=== PATIENT | male | born 1940 | race Caucasian/White ===

== ENCOUNTER 2017-11-25 01:08 | Inpatient (IN) | payer OTHER ==
[2017-11-25] MEDS: methylPREDNISolone INJ 125 MG/2 ML VIAL (J2930) IV ×3 (01:26→21:50)
[2017-11-25] MEDS: IPRATROPIUM 0.5MG/ALBUTEROL 2.5MG INH SOL UD 3ML (DUONEB)(J7620) NEB ×6 (01:33→20:13)
[2017-11-25 01:38] LABS: BASO # 0.1 10^3/uL (0.0-0.2); BASO % 0.7 % (0.0-1.0); EOS # 0.5 10^3/uL (0.0-0.50); EOS % 4.6 % (0.0-3.0); HEMATOCRIT 46.5 % (42.0-52.0); HEMOGLOBIN 15.6 g/dl (14.0-18.0); IMMATURE GRANULOCYTE % 0.3 % (0-0); LYMPH # 1.4 10^3/uL (1.5-4.5); LYMPH % 13.3 % (24.0-44.0); MEAN CORPUSCULAR HEMOGLOBIN 30.8 pg (27.0-33.0); MEAN CORPUSCULAR HGB CONC 33.5 g/dl (32.0-36.5); MEAN CORPUSCULAR VOLUME 91.9 fl (80.0-96.0); MONO # 1.2 10^3/uL (0.0-0.8); MONO % 11.3 % (0.0-5.0); NEUTROPHILS # 7.5 10^3/uL (1.8-7.7); NEUTROPHILS % 69.8 % (36.0-66.0); PLATELET COUNT, AUTOMATED 292 10^3/uL (150-450); RED BLOOD COUNT 5.06 10^6/uL (4.30-6.10); RED CELL DISTRIBUTION WIDTH 12.7 % (11.5-14.5); WHITE BLOOD COUNT 10.8 10^3/uL (4.0-10.0)
[2017-11-25] MEDS: MAG SULF 1GM/100ML (MAG RUN) 1 GM in APPROPRIATE DILUENT 1 EA IV (01:49)
[2017-11-25 01:56] LABS: LACTIC ACID SEPSIS PROTOCOL 1.6 MMOL/L (0.4-2.0)
[2017-11-25 01:58] LABS: ANION GAP 6 MEQ/L (8-16); BLOOD UREA NITROGEN 12 MG/DL (7-18); CALCIUM LEVEL 8.9 MG/DL (8.8-10.2); CARBON DIOXIDE LEVEL 29 MEQ/L (21-32); CHLORIDE LEVEL 104 MEQ/L (98-107); CREATININE FOR GFR 1.02 MG/DL (0.70-1.30); GLOMERULAR FILTRATION RATE > 60.0 (>42); GLUCOSE, FASTING 112 MG/DL (83-110); NT-PRO BNP 130 PG/ML (<450); POTASSIUM SERUM 3.4 MEQ/L (3.5-5.1); SODIUM LEVEL 139 MEQ/L (136-145)
[2017-11-25 02:10] LABS: ABG BASE EXCESS -0.9 (-2.0-2.0); ABG HCO3 22.8 MEQ/L (22.0-26.0); ABG O2 SATURATION 92.4 % (95.0-99.0); ABG PARTIAL PRESSURE CO2 35.4 mmHg (35.0-45.0); ABG PARTIAL PRESSURE O2 60.7 mmHg (75.0-100.0); ABG STANDARD HCO3 23.6 MEQ/L (22.0-26.0); ABG TOTAL CO2 23.9 MEQ/L (23.0-31.0); ABG pH (ARTERIAL) 7.427 UNITS (7.350-7.450)
[2017-11-25] MEDS: MONTELUKAST 10 MG TAB PO (08:42)
[2017-11-25] MEDS: PANTOPRAZOLE 40MG TAB (PROTONIX) PO (08:43)
[2017-11-26] MEDS: IPRATROPIUM 0.5MG/ALBUTEROL 2.5MG INH SOL UD 3ML (DUONEB)(J7620) NEB ×5 (03:39→18:26)
[2017-11-26 07:24] LABS: HEMATOCRIT 41.4 % (42.0-52.0); HEMOGLOBIN 13.9 g/dl (14.0-18.0); MEAN CORPUSCULAR HEMOGLOBIN 30.8 pg (27.0-33.0); MEAN CORPUSCULAR HGB CONC 33.6 g/dl (32.0-36.5); MEAN CORPUSCULAR VOLUME 91.6 fl (80.0-96.0); PLATELET COUNT, AUTOMATED 286 10^3/uL (150-450); RED BLOOD COUNT 4.52 10^6/uL (4.30-6.10); RED CELL DISTRIBUTION WIDTH 12.8 % (11.5-14.5); WHITE BLOOD COUNT 22.6 10^3/uL (4.0-10.0)
[2017-11-26 07:48] LABS: ANION GAP 8 MEQ/L (8-16); BLOOD UREA NITROGEN 23 MG/DL (7-18); CALCIUM LEVEL 8.8 MG/DL (8.8-10.2); CARBON DIOXIDE LEVEL 26 MEQ/L (21-32); CHLORIDE LEVEL 103 MEQ/L (98-107); CREATININE FOR GFR 1.16 MG/DL (0.70-1.30); GLOMERULAR FILTRATION RATE > 60.0 (>42); GLUCOSE, FASTING 158 MG/DL (83-110); POTASSIUM SERUM 4.2 MEQ/L (3.5-5.1); SODIUM LEVEL 137 MEQ/L (136-145)
[2017-11-26] MEDS: MONTELUKAST 10 MG TAB PO (08:22)
[2017-11-26] MEDS: PANTOPRAZOLE 40MG TAB (PROTONIX) PO (08:22)
[2017-11-26] MEDS: methylPREDNISolone INJ 125 MG/2 ML VIAL (J2930) IV ×2 (08:22→20:35)
[2017-11-26] MEDS: guaiFENesin ER 600 MG TAB PO ×2 (09:52→20:35)
[2017-11-26] MEDS: MAG SULF 1GM/100ML (MAG RUN) 1 GM in APPROPRIATE DILUENT 1 EA IV ×2 (15:59→16:56)
[2017-11-27 07:42] LABS: HEMATOCRIT 41.2 % (42.0-52.0); MEAN CORPUSCULAR HEMOGLOBIN 31.1 pg (27.0-33.0); MEAN CORPUSCULAR VOLUME 91.6 fl (80.0-96.0); PLATELET COUNT, AUTOMATED 273 10^3/uL (150-450); WHITE BLOOD COUNT 22.7 10^3/uL (4.0-10.0)
[2017-11-27 08:02] LABS: ANION GAP 5 MEQ/L (8-16); BLOOD UREA NITROGEN 25 MG/DL (7-18); CALCIUM LEVEL 8.4 MG/DL (8.8-10.2); CARBON DIOXIDE LEVEL 29 MEQ/L (21-32); CHLORIDE LEVEL 105 MEQ/L (98-107); CREATININE FOR GFR 1.03 MG/DL (0.70-1.30); GLOMERULAR FILTRATION RATE > 60.0 (>42); GLUCOSE, FASTING 136 MG/DL (83-110); MAGNESIUM LEVEL 2.9 MG/DL (1.8-2.4); POTASSIUM SERUM 4.6 MEQ/L (3.5-5.1); SODIUM LEVEL 139 MEQ/L (136-145)
[2017-11-27] MEDS: methylPREDNISolone INJ 125 MG/2 ML VIAL (J2930) IV ×2 (09:29→21:07)
[2017-11-27] MEDS: guaiFENesin ER 600 MG TAB PO ×3 (09:29→21:07)
[2017-11-27] MEDS: MONTELUKAST 10 MG TAB PO (09:29)
[2017-11-27] MEDS: PANTOPRAZOLE 40MG TAB (PROTONIX) PO (09:29)
[2017-11-27] MEDS: IPRATROPIUM 0.5MG/ALBUTEROL 2.5MG INH SOL UD 3ML (DUONEB)(J7620) NEB ×2 (10:44→17:00)
[2017-11-27] MEDS: SYMBICORT 160/4.5MCG INHALER 6GM INH ×2 (14:22→20:58)
[2017-11-28 06:44] LABS: HEMATOCRIT 39.9 % (42.0-52.0); HEMOGLOBIN 13.5 g/dl (14.0-18.0); MEAN CORPUSCULAR HGB CONC 33.8 g/dl (32.0-36.5); MEAN CORPUSCULAR VOLUME 91.5 fl (80.0-96.0); PLATELET COUNT, AUTOMATED 244 10^3/uL (150-450); RED BLOOD COUNT 4.36 10^6/uL (4.30-6.10); RED CELL DISTRIBUTION WIDTH 12.7 % (11.5-14.5)
[2017-11-28 07:02] LABS: ANION GAP 6 MEQ/L (8-16); BLOOD UREA NITROGEN 19 MG/DL (7-18); CARBON DIOXIDE LEVEL 28 MEQ/L (21-32); CHLORIDE LEVEL 105 MEQ/L (98-107); CREATININE FOR GFR 0.87 MG/DL (0.70-1.30); GLOMERULAR FILTRATION RATE > 60.0 (>42); GLUCOSE, FASTING 132 MG/DL (83-110); POTASSIUM SERUM 4.4 MEQ/L (3.5-5.1); SODIUM LEVEL 139 MEQ/L (136-145)
[2017-11-28] MEDS: MONTELUKAST 10 MG TAB PO (08:37)
[2017-11-28] MEDS: guaiFENesin ER 600 MG TAB PO (08:37)
[2017-11-28] MEDS: methylPREDNISolone INJ 125 MG/2 ML VIAL (J2930) IV (08:37)
[2017-11-28] MEDS: PANTOPRAZOLE 40MG TAB (PROTONIX) PO (08:37)
[2017-11-28] MEDS: SYMBICORT 160/4.5MCG INHALER 6GM INH (09:14)
[2017-11-28] MEDS: IPRATROPIUM 0.5MG/ALBUTEROL 2.5MG INH SOL UD 3ML (DUONEB)(J7620) NEB (10:53)
== END 2017-11-28 12:15 | disposition home or self-care (01) | DRG 203 ==
LOC: M MS4PR 11-26 03:05 → M MS5PR 11-28 03:20 → M ED 01:08 → M ED INP 03:28
DX: J45.901 Unspecified asthma with (acute) exacerbation (principal); K21.9 Gastro-esophageal reflux disease without esophagitis; D72.829 Elevated white blood cell count, unspecified; Z79.899 Other long term (current) drug therapy

== ENCOUNTER → 2018-11-19 | Outpatient (REF) ==
[~2018-11-19] MED LIST: ALBU83IN INH; CLAR10CA3 PO; FISH100049 PO; IPRA0.00 NEB; LORA-243 PO; OMEP20CA3 PO; OMEP40CA2 PO; PRED20TA PO; PROAAER10 INH; SING10TA32 PO; SYMB16INH INH; VITA-115 PO; VITA100066 PO; VITA500T PO; VITATAB11 PO
--- NOTE | 2018-11-19 17:14 | REP ---
Chest x-ray: Two views: History: Cough and wheezing. Comparison study: November 25, 2017. Findings: Right hemidiaphragm is somewhat elevated as before consistent with an eventration. There is a small sliding-type hiatal hernia again noted. The lungs are otherwise well inflated and clear. Pleural angles are sharp. Heart size is normal. Pulmonary vasculature is not increased. No significant bony abnormality. Impression: Small hiatal hernia. Eventration right hemidiaphragm again noted. No acute disease. Electronically Signed by Lee Worley MD 11/19/2018 06:22 P
== END ==
LOC: M RAD 16:14
PROVIDERS: ATTEND Nurse Practitioner Family
DX: R05 Cough (principal); R06.09 Other forms of dyspnea

== ENCOUNTER 2019-07-20 23:50 | Inpatient (IN) | payer OTHER, MEDICARE ==
[~2019-07-20] VITALS: Ht 177.8 cm; Wt 90.1 kg
[~2019-07-20 23:50] MED LIST changes: -OMEP20CA3 PO; +OMEP20CA4 PO
[2019-07-21] MEDS ORDERED: BUDESONIDE 0.5 MG/2 ML INHALATION SUSPENSION INH ONE (00:15)
[2019-07-21] MEDS: MAG SULF 1GM/100ML (MAG RUN) 1 GM in APPROPRIATE DILUENT 1 EA IV SCH ×2 (00:38→01:19)
[2019-07-21 00:41] LABS: BASO # 0.1 10^3/uL (0.0-0.2); BASO % 0.5 % (0.0-1.0); EOS # 0.2 10^3/uL (0.0-0.50); EOS % 1.2 % (0.0-3.0); HEMOGLOBIN 14.9 g/dl (13.5-17.5); LYMPH % 7.4 % (24.0-44.0); MEAN CORPUSCULAR HEMOGLOBIN 31.6 pg (27.0-33.0); MEAN CORPUSCULAR HGB CONC 33.1 g/dl (32.0-36.5); MEAN CORPUSCULAR VOLUME 95.5 fl (80.0-96.0); MONO # 0.7 10^3/uL (0.0-0.8); NEUTROPHILS # 11.4 10^3/uL (1.8-7.7); NEUTROPHILS % 85.5 % (36.0-66.0); PLATELET COUNT, AUTOMATED 244 10^3/uL (150-450); RED BLOOD COUNT 4.71 10^6/uL (4.30-6.10); WHITE BLOOD COUNT 13.3 10^3/uL (4.0-10.0)
[2019-07-21 01:30] LABS: BLOOD UREA NITROGEN 18 MG/DL (7-18); CALCIUM LEVEL 9.9 MG/DL (8.8-10.2); CARBON DIOXIDE LEVEL 29 MEQ/L (21-32); CHLORIDE LEVEL 106 MEQ/L (98-107); CK-MB VALUE MASS 7.7 NG/ML (<3.6); CPK CREATINE PHOSPHOKINASE 349 U/L (39-308); CREATININE FOR GFR 1.15 MG/DL (0.70-1.30); GLOMERULAR FILTRATION RATE > 60.0 (>42); GLUCOSE, FASTING 118 MG/DL (70-100); MB/CK RELATIVE INDEX 2.21 (< OR =4); NT-PRO BNP 134 PG/ML (<450); POTASSIUM SERUM 4.1 MEQ/L (3.5-5.1); SODIUM LEVEL 141 MEQ/L (136-145); TROPONIN I < 0.02 NG/ML (< 0.10)
[2019-07-21] MEDS ORDERED: IPRATROPIUM 0.5MG/ALBUTEROL 2.5MG INH SOL UD 3ML (DUONEB)(J7620) NEB ONE ×2 (02:15→19:00)
[2019-07-21] MEDS ORDERED: IPRATROPIUM 0.5MG/ALBUTEROL 2.5MG INH SOL UD 3ML (DUONEB)(J7620) NEB PRN (03:00)
--- NOTE | 2019-07-21 03:09 | HPEPDOC ---
General Date of Admission 07/21/19 Date of Service: Jul 21, 2019 Chief Complaint The patient is a 78-year-old male admitted with a reason for visit of SOB. Source: Patient, RN/MD, Old records Exam Limitations: No limitations Severity: Moderate History of Present Illness 78 year old male presented to the ED via EMS for worsening SOB for 4 days with increased cough and wheezing which reached a crisis level yesterday afternoon to such an extent that he was confused unable to speak more than 2 words at a time and did not know what was going on so called the ambulance. Over the past several days he used his rescue inhaler and nebs frequently without any relief . In the ED he was given nebs, and magnesium for his SOB. He was hypoxic on arrival which improved after treatment but he still continued to be hypoxic on ambulation. He was given Decadron by EMS. He was admitted for Acute asthma exacerbation with hypoxia. Home Medications Scheduled Glucosamine Sulfate Dipot Chlr (Glucosamine) 1,000 Mg Tablet, 1,000 MG PO DAILY, (Reported) Loratadine (Loratadine) 10 Mg Tab, 10 MG PO DAILY, (Reported) Montelukast Sodium (Singulair) 10 Mg Tab, 10 MG PO DAILY, (Reported) [place]-3 Fatty Acids/Fish Oil (Fish Oil 1,000 mg Capsule) 1 Each Capsule, 1,000 MG PO DAILY, (Reported) Omeprazole (Omeprazole) 20 Mg Cap, 20 MG PO DAILY, (Reported) Saw [place] (Saw Montgomery) 160 Mg Capsule, 160 MG PO BID, (Reported) Tiotropium [place] (Spiriva) 18 Mcg Cap.w.dev, 1 INHALATION INH DAILY, (Rep orted) Vitamin B Complex (B Complex) 1 Each Tablet, 1 TAB PO DAILY, (Reported) Scheduled PRN Albuterol Sulf (Albuterol Sulfate) 2.5 Mg/3 Ml Nebu, 2.5 MG INH QID PRN for SHORTNESS OF BREATH, (Reported) Albuterol Sulfate (Proair Hfa) 108 Mcg/Act Aer, 2 PUFF INH Q4H PRN for SHORTNESS OF BREATH, (Reported) Allergies Coded Allergies: aspirin (Verified Allergy, Severe, ANAPHYLAXIS, 07/21/19) Past Medical History Medical History Asthma GERD Small hiatal hernia. Eventration right hemidiaphragm Surgical History Tonsillectomy vasectomy Hernia repair left knee tendon surgery Family History Significant Family History: Asthma (grandfather) Social History * Smoker: Denies Alcohol: Denies Drugs: denies A-FIB/CHADSVASC A-FIB History Current/History of A-Fib/PAF?: No Review of Systems Constitutional: Reports: Fatigue; Denies: Chills, Fever, Night Sweats Eyes: Denies: Pain, Vision change ENT: Denies: Head Aches, Ear Pain, Dysphagia Skin: Denies: Rash, Lesions, Breakdown Pulmonary: Reports: Dyspnea, Cough Cardiovascular: Reports: Palpitations, Edema Gastrointestinal: Denies: Nausea, Vomiting, Abdominal Pain, Diarrhea Genitourinary: Denies: Dysuria, Frequency, Incontinence, Retention Musculoskeletal: Denies: Neck Pain, Back Pain, Joint Pain, Muscle Pain, Spasms Neurological: Reports: Confusion; Denies: Weakness, Numbness, Change in speech Physical Examination General Exam: Positive: Alert, Cooperative, Mild Distress Eye Exam: Positive: PERRLA, Conjunctiva & lids normal, EOMI; Negative: Sclera icteric ENT Exam: Positive: Atraumatic, Mucous membr. moist/pink, Pharynx Normal Neck Exam: Positive: Supple; Negative: JVD, thyromegaly Chest Exam: Positive: Rhonchi, Wheezing, Diminished Heart Exam: Positive: Rate Normal, Tachycardic, Regular Rhythm, Normal S1, Normal S2, Other; Negative: Gallops, Murmurs, Rubs Telemetry: Positive: Sinus, Tachycardia Abdomen Exam: Positive: Normal bowel sounds, Soft; Negative: Tenderness, Hepatospenomegaly Extremity Exam: Positive: Edema (trace edema) Skin Exam: Positive: Nl turgor and temperature; Negative: Breakdown, Lesion Neuro Exam: Positive: Normal Gait, Normal Speech, Cranial Nerves 3-12 NL, Reflexes 2+ Vital Signs Vital Signs Date Time Temp Pulse Resp B/P (MAP) Pulse Ox O2 Delivery O2 Flow Rate FiO2 07/21/19 00:04 Nasal Cannula 2.0 07/21/19 00:02 97.3 104 22 149/97 (114) 97 Laboratory Data Labs 24H Laboratory Tests 2 07/21/19 00:25: Immature Granulocyte % (Auto) 0.4, White Blood Count 13.3H, Red Blood Count 4.71, Hemoglobin 14.9, Hematocrit 45.0, Mean Corpuscular Volume 95.5, Mean Corpuscular Hemoglobin 31.6, Mean Corpuscular Hemoglobin Concent 33.1, Red Cell Distribution Width 12.9, Platelet Count 244, Neutrophils (%) (Auto) 85.5H, Lymphocytes (%) (Auto) 7.4L, Monocytes (%) (Auto) 5.0, Eosinophils (%) (Auto) 1.2, Basophils (%) (Auto) 0.5, Neutrophils # (Auto) 11.4H, Lymphocytes # (Auto) 1.0L, Monocytes # (Auto) 0.7, Eosinophils # (Auto) 0.2, Basophils # (Auto) 0.1, Nucleated Red Blood Cells % (auto) 0.0, Anion Gap 6L, Glomerular Filtration Rate > 60.0, Lactic Acid Level 1.0, Blood Urea Nitrogen 18, Creatinine 1.15, Sodium Level 141, Potassium Level 4.1, Chloride Level 106, Carbon Dioxide Level 29, Calcium Level 9.9, Total Creatine Kinase 349H, Creatine Kinase MB 7.7H, Creatine Kinase MB Relative Index 2.21, Troponin I < 0.02, UJ-[id number]-Type Natriuretic Peptide 134 07/21/19 01:41: POC pH (Misc Panel) 7.372, POC Base Excess (Misc Panel) -1.0, POC Saturated Percent O2 (Misc) 96, POC pO2 (Misc Panel) 85.0, POC pCO2 (Misc Panel) 41.3, POC HCO3 (Misc Panel) 24.0, POC Total CO2 (Misc Panel) 25.0 CBC/BMP Laboratory Tests 07/21/19 00:25 Red Blood Count 4.71, Mean Corpuscular Volume 95.5, Mean Corpuscular Hemoglobin 31.6, Mean Corpuscular Hemoglobin Concent 33.1, Red Cell Distribution Width 12.9, Neutrophils (%) (Auto) 85.5 H, Lymphocytes (%) (Auto) 7.4 L, Monocytes (%) (Auto) 5.0, Eosinophils (%) (Auto) 1.2, Basophils (%) (Auto) 0.5, Neutrophils # (Auto) 11.4 H, Lymphocytes # (Auto) 1.0 L, Monocytes # (Auto) 0.7, Eosinophils # (Auto) 0.2, Basophils # (Auto) 0.1, Calcium Level 9.9, Total Creatine Kinase 349 H Microbiology Microbiology 07/21/19 Blood Culture, Received Pending 07/21/19 Blood Culture, Received Pending Assessment/Plan 78 year old male presented to the ED via EMS for worsening SOB for 4 days with increased cough and wheezing which reached a crisis level yesterday afternoon to such an extent that he was confused unable to speak more than 2 words at a time and did not know what was going on so called the ambulance. Over the past several days he used his rescue inhaler and nebs frequently without any relief . In the ED he was given nebs, and magnesium for his SOB. He was hypoxic on arrival which improved after treatment but he still continued to be hypoxic on ambulation. He was given Decadron by EMS. He was admitted for Acute asthma exacerbation with hypoxia. Asthma exacerbation will continue albuterol nebs, spiriva , methylpred, singulair, loratadine. will add budesonide nebs. Hypoxia due to asthma exacerbation continue oxygen supplementation Leucocytosis probably reactive GERD/Hiatal hernia omeprazole. Plan / VTE VTE Prophylaxis Ordered?: Yes PRATIBHA MOROCHO MD Jul 21, 2019 02:29
[2019-07-21] MEDS ORDERED: RA B1TAB7 PO (03:10)
[2019-07-21] MEDS ORDERED: SPIR1CAP INH (03:10)
[2019-07-21] MEDS ORDERED: SM S160C PO (03:10)
[2019-07-21] MEDS ORDERED: FISH1000 PO (03:10)
[2019-07-21] MEDS ORDERED: GNP1000T11 PO (03:10)
[2019-07-21] MEDS: ALBUTEROL SULFATE 2.5 MG/0.5 ML INH NEB SOLN NEB SCH ×4 (04:17→15:26)
[2019-07-21] MEDS: methylPREDNISolone INJ 40 MG/1 ML VIAL (J2920) IV SCH ×2 (05:11→12:20)
--- NOTE | 2019-07-21 05:44 | ECGEPIP ---
[facility] - ED Test Date: 2019-07-21 Pat Name: JEREMIE ALBA Department: Room: - Gender: Male Adoption Social Worker: margot : 1940 Requested By: SUDHA Li Order Number: [id number] Reading MD: Jayden De Anda Measurements Intervals [place] Rate: 103 P: 59 SD: 188 QRS: -62 QRSD: 113 T: 88 QT: 355 QTc: 465 Interpretive Statements SINUS TACHYCARDIA WITH FREQUENT VENTRICULAR PREMATURE COMPLEXES LEFT AXIS DEVIATION MODERATE INTRAVENTRICULAR CONDUCTION DELAY NONSPECIFIC T-WAVE ABNORMALITY SIMILAR TO 11/25/17 Electronically Signed on 07-21-2019 5:43:43 EDT by Jayden De Anda
[2019-07-21 06:45] LABS: BASO % 0.3 % (0.0-1.0); HEMOGLOBIN 14.2 g/dl (13.5-17.5); LYMPH # 0.5 10^3/uL (1.5-4.5); LYMPH % 7.2 % (24.0-44.0); MEAN CORPUSCULAR HEMOGLOBIN 31.8 pg (27.0-33.0); MEAN CORPUSCULAR HGB CONC 33.8 g/dl (32.0-36.5); MEAN CORPUSCULAR VOLUME 94.2 fl (80.0-96.0); MONO # 0.1 10^3/uL (0.0-0.8); MONO % 1.3 % (0.0-5.0); NEUTROPHILS # 6.2 10^3/uL (1.8-7.7); NEUTROPHILS % 90.8 % (36.0-66.0); PLATELET COUNT, AUTOMATED 234 10^3/uL (150-450); RED BLOOD COUNT 4.46 10^6/uL (4.30-6.10); WHITE BLOOD COUNT 6.8 10^3/uL (4.0-10.0)
[2019-07-21 06:55] LABS: BLOOD UREA NITROGEN 16 MG/DL (7-18); CALCIUM LEVEL 8.8 MG/DL (8.8-10.2); CARBON DIOXIDE LEVEL 27 MEQ/L (21-32); CHLORIDE LEVEL 106 MEQ/L (98-107); CREATININE FOR GFR 0.95 MG/DL (0.70-1.30); GLOMERULAR FILTRATION RATE > 60.0 (>42); GLUCOSE, FASTING 161 MG/DL (70-100); POTASSIUM SERUM 4.1 MEQ/L (3.5-5.1); SODIUM LEVEL 139 MEQ/L (136-145)
[2019-07-21] MEDS ORDERED: SYMBICORT 160/4.5MCG INHALER 6GM INH SCH (08:00)
[2019-07-21] MEDS: TIOTROPIUM INHALER/CAPSULE (SPIRIVA) INH SCH (08:20)
[2019-07-21] MEDS: BUDESONIDE 0.5 MG/2 ML INHALATION SUSPENSION INH SCH ×2 (08:20→21:34)
[2019-07-21 09:00] VITALS: BP 129/88
[2019-07-21] MEDS: ENOXAPARIN 40 MG/0.4 ML SYRINGE (J1650) SC SCH (09:11)
[2019-07-21] MEDS: LORATADINE 10 MG TAB PO SCH (09:11)
[2019-07-21] MEDS: OMEPRAZOLE 20 MG CAP PO SCH (09:11)
[2019-07-21] MEDS ORDERED: SYMB16INH INH (11:20)
[2019-07-21] MEDS ORDERED: PULM90IN INH (11:20)
--- NOTE | 2019-07-21 11:57 | REP ---
Clinical: Shortness of breath . Comparison: 11/19/2018 . Findings: The mediastinum and cardiac silhouette are stable and within normal limits for portable technique. The lung ruiz demonstrate chronic-appearing changes including elevation to the right hemidiaphragm. Subtle left basilar atelectasis cannot be excluded. No discrete focal consolidation. No effusion. No pneumothorax. Skeletal structures are intact. Impression: Chronic-appearing changes. Cannot exclude subtle left basilar atelectasis. Electronically Signed by Kevin Patel MD 07/21/2019 02:19 A
--- NOTE | 2019-07-21 11:58 | IPNPDOC ---
Subjective Date Seen The patient was seen on 07/21/19. Subjective Chief Complaint/HPI 78 y/o male patient presented by ambulance to ED with shortness of breath, hypoxia and coughing that started at approximately 5:30 am on 07/19/19. Patient has history of asthma with acute exasperations. Patient used his nebulizer and rescue inhaler with only minor relief. Patient has been exposed to hospital environment several times over the past week visiting his hospitalized at [place]. Patient's daughter stated that she is not sure if he has been compliant with his asthma medications proceeding this acute respiratory distress episode. ENT: Denies: Ear Pain, Dysphagia, Sinus Congestion, Post Nasal Drip, Sore T hroat Pulmonary: Reports: Dyspnea, Cough; Denies: Pleuritic Chest Pain Cardiovascular: Denies: Chest Pain, Palpitations Gastrointestinal: Denies: Abdominal Pain Psych: Denies: Memory Issues Objective Physical Examination General Exam: Positive: Alert, Cooperative, No Acute Distress Neck Exam: Positive: Supple; Negative: JVD, thyromegaly Chest Exam: Positive: Wheezing; Negative: Rales, Rhonchi Heart Exam: Positive: Rate Normal, Tachycardic, Bradycardic, Regular Rhythm, Irregular Rhythm, Normal S1, Normal S2, Other; Negative: Gallops, Murmurs, Rubs Telemetry: Positive: Sinus, Tachycardia Abdomen Exam: Positive: Normal bowel sounds, Soft; Negative: Tenderness, Hepatospenomegaly, Mass, Hernia Extremity Exam: Positive: Normal pulses; Negative: Cyanosis, Edema (trace edema), Tenderness, Swelling Skin Exam: Positive: Nl turgor and temperature Neuro Exam: Positive: Normal Speech Psych Exam: Positive: Mood NL, Oriented x 3, Other (Patient oriented to place, name, birthdate president but daughter stated uses paper for day and month as he has trouble with short-term memory. For example, he does not remember visting his at hospital yesterday.) RAD Interpretation STUDY: CXR Rad Actions: Report Reviewed RAD Interpretation: Other Result Comments: (Impression : Chronic-appearing changes. Cannot exclude subtle basilar atelectasis) Assessment /Plan Assessment 78 year old male presented to the ED via EMS for SOB that started 2 days ago with non productive cough and bilateral wheezing. He has been using his rescue inhaler and nebulized albuterol frequently since 07/19/19 with limited relief. Patient was transported to [facility] ED by ambulance for cough and SOB. Ambulance providers gave Decadron prior to arrival in ED. Patient's hypoxic and shortness of breath conditions improved with nebulized treatments and magnesium at rest. Upon ambulation patient's SOB and hypoxia returned. Patient was admitted for Acute asthma exacerbation with hypoxia. Respiratory Virus Panel (PCR) was negative. Plan/VTE VTE Prophylaxis Ordered?: Yes (Continue Levenox 40 mg Daily SC ) Plan 1. Asthma exacerbation Continue Albuterol Sulfate 2.5 mg RQ4H NEB, Spiriva handihaler 1-inhalation daily @ 08:00, Methylpredisone 40 mg Q8H IV, Singulair 10 mg PO QHS, Loratadine 10 mg PO daily and Budesonide 0.5 RBID INH. 2. Hypoxia - Due to Acute asthma exacerbation Continue oxygen supplementation 2L by nasal cannula. Wean off oxygen as patient able to ambulate without SOB, coughing and SpO2 sat at 92% or above. 3. Leukocytosis, resolved -Most likely reactive 4. GERD/Hiatal hernia Continue Omeprazole 20 mg PO Daily VS, I&O, 24H, [facility] Vital Signs/I&O Vital Signs Date Time Temp Pulse Resp B/P (MAP) Pulse Ox O2 Delivery O2 Flow Rate FiO2 07/21/19 09:00 98.8 102 22 129/88 (102) 93 07/21/19 08:00 2.0 07/21/19 03:00 Nasal Cannula Laboratory Data 24H LABS Laboratory Tests 2 07/21/19 00:25: Immature Granulocyte % (Auto) 0.4, White Blood Count 13.3H, Red Blood Count 4.71, Hemoglobin 14.9, Hematocrit 45.0, Mean Corpuscular Volume 95.5, Mean Corpuscular Hemoglobin 31.6, Mean Corpuscular Hemoglobin Concent 33.1, Red Cell Distribution Width 12.9, Platelet Count 244, Neutrophils (%) (Auto) 85.5H, Lymphocytes (%) (Auto) 7.4L, Monocytes (%) (Auto) 5.0, Eosinophils (%) (Auto) 1.2, Basophils (%) (Auto) 0.5, Neutrophils # (Auto) 11.4H, Lymphocytes # (Auto) 1.0L, Monocytes # (Auto) 0.7, Eosinophils # (Auto) 0.2, Basophils # (Auto) 0.1, Nucleated Red Blood Cells % (auto) 0.0, Anion Gap 6L, Glomerular Filtration Rate > 60.0, Lactic Acid Level 1.0, Blood Urea Nitrogen 18, Creatinine 1.15, Sodium Level 141, Potassium Level 4.1, Chloride Level 106, Carbon Dioxide Level 29, Calcium Level 9.9, Total Creatine Kinase 349H, Creatine Kinase MB 7.7H, Creatine Kinase MB Relative Index 2.21, Troponin I < 0.02, QB-Kcy-[id number]-Type Natriuretic P eptide 134 07/21/19 01:41: POC pH (Misc Panel) 7.372, POC Base Excess (Misc Panel) -1.0, POC Saturated Percent O2 (Misc) 96, POC pO2 (Misc Panel) 85.0, POC pCO2 (Misc Panel) 41.3, POC HCO3 (Misc Panel) 24.0, POC Total CO2 (Misc Panel) 25.0 07/21/19 06:21: Immature Granulocyte % (Auto) 0.4, White Blood Count 6.8, Red Blood Count 4.46, Hemoglobin 14.2, Hematocrit 42.0, Mean Corpuscular Volume 94.2, Mean Corpuscular Hemoglobin 31.8, Mean Corpuscular Hemoglobin Concent 33.8, Red Cell Distribution Width 13.1, Platelet Count 234, Neutrophils (%) (Auto) 90.8H, Lymphocytes (%) (Auto) 7.2L, Monocytes (%) (Auto) 1.3, Eosinophils (%) (Auto) 0.0, Basophils (%) (Auto) 0.3, Neutrophils # (Auto) 6.2, Lymphocytes # (Auto) 0.5L, Monocytes # (Auto) 0.1, Eosinophils # (Auto) 0.0, Basophils # (Auto) 0.0, Nucleated Red Blood Cells % (auto) 0.0, Anion Gap 6L, Glomerular Filtration Rate > 60.0, Blood Urea Nitrogen 16, Creatinine 0.95, Sodium Level 139, Potassium Level 4.1, Chloride Level 106, Carbon Dioxide Level 27, Calcium Level 8.8 CBC/BMP Laboratory Tests 07/21/19 00:25 Red Blood Count 4.71, Mean Corpuscular Volume 95.5, Mean Corpuscular Hemoglobin 31.6, Mean Corpuscular Hemoglobin Concent 33.1, Red Cell Distribution Width 12.9, Neutrophils (%) (Auto) 85.5 H, Lymphocytes (%) (Auto) 7.4 L, Monocytes (%) (Auto) 5.0, Eosinophils (%) (Auto) 1.2, Basophils (%) (Auto) 0.5, Neutrophils # (Auto) 11.4 H, Lymphocytes # (Auto) 1.0 L, Monocytes # (Auto) 0.7, Eosinophils # (Auto) 0.2, Basophils # (Auto) 0.1, Calcium Level 9.9, Total Creatine Kinase 349 H 07/21/19 06:21 Red Blood Count 4.46, Mean Corpuscular Volume 94.2, Mean Corpuscular Hemoglobin 31.8, Mean Corpuscular Hemoglobin Concent 33.8, Red Cell Distribution Width 13.1, Neutrophils (%) (Auto) 90.8 H, Lymphocytes (%) (Auto) 7.2 L, Monocytes (%) (Auto) 1.3, Eosinophils (%) (Auto) 0.0, Basophils (%) (Auto) 0.3, Neutrophils # (Auto) 6.2, Lymphocytes # (Auto) 0.5 L, Monocytes # (Auto) 0.1, Eosinophils # (Auto) 0.0, Basophils # (Auto) 0.0, Calcium Level 8.8 Microbiology Microbiology 07/21/19 Blood Culture, Received Pending 07/21/19 Blood Culture, Received Pending GME ATTESTATION GME ATTESTATION My faculty preceptor for this patient encounter was physically present during the encounter and was fully available. All aspects of the patient interview, examination, medical decision making process, and medical care plan development were reviewed and approved by the faculty preceptor. The faculty preceptor is aware and concurs with the plan as stated in the body of this note and will attest to such by his/her cosignature. ATTENDING NOTE I, Eric Allan, have independently examined this patient and performed my own physical exam, as well as reviewed the documentation and edited where necessary. I have discussed in detail with the resident / student the findings and plan of treatment as documented by the resident / student and edited their note. I agree with their findings and treatment plan and have edited their documentation. I w ill continue to follow the patient during this hospital stay. CHASITY GOODEN Jul 21, 2019 11:58 ERIC ALLAN MD Jul 22, 2019 07:59
[2019-07-21 16:00] VITALS: BP 141/86
[2019-07-21] MEDS ORDERED: IPRATROPIUM 0.5MG/ALBUTEROL 2.5MG INH SOL UD 3ML (DUONEB)(J7620) As Ordered ONE (18:57)
[2019-07-21] MEDS: MONTELUKAST 10 MG TAB PO SCH (20:18)
[2019-07-21] MEDS: methylPREDNISolone INJ 125 MG/2 ML VIAL (J2930) IV SCH (20:19)
[2019-07-21] MEDS: RAMELTEON 8 MG TAB (ROZEREM) PO SCH (21:00)
[2019-07-21] MEDS: raNITIdine SYRUP 150 MG/10 ML UDC GT SCH (21:42)
[2019-07-21] MEDS: ALBUTEROL 90 MCG/ACT 8GM HFA INHALER INH PRN (23:54)
[2019-07-22] MEDS: methylPREDNISolone INJ 125 MG/2 ML VIAL (J2930) IV SCH (04:09)
[2019-07-22 06:00] VITALS: BP 161/86
[2019-07-22 06:17] LABS: BASO % 0.1 % (0.0-1.0); HEMATOCRIT 39.6 % (42.0-52.0); HEMOGLOBIN 13.1 g/dl (13.5-17.5); LYMPH # 0.8 10^3/uL (1.5-4.5); LYMPH % 4.3 % (24.0-44.0); MEAN CORPUSCULAR HEMOGLOBIN 30.7 pg (27.0-33.0); MEAN CORPUSCULAR HGB CONC 33.1 g/dl (32.0-36.5); MEAN CORPUSCULAR VOLUME 92.7 fl (80.0-96.0); MONO # 0.7 10^3/uL (0.0-0.8); MONO % 4.1 % (0.0-5.0); NEUTROPHILS # 16.2 10^3/uL (1.8-7.7); NEUTROPHILS % 90.8 % (36.0-66.0); PLATELET COUNT, AUTOMATED 255 10^3/uL (150-450); RED BLOOD COUNT 4.27 10^6/uL (4.30-6.10); WHITE BLOOD COUNT 17.8 10^3/uL (4.0-10.0)
[2019-07-22 06:40] LABS: BLOOD UREA NITROGEN 22 MG/DL (7-18); CALCIUM LEVEL 9.4 MG/DL (8.8-10.2); CARBON DIOXIDE LEVEL 27 MEQ/L (21-32); CHLORIDE LEVEL 103 MEQ/L (98-107); CREATININE FOR GFR 1.02 MG/DL (0.70-1.30); GLOMERULAR FILTRATION RATE > 60.0 (>42); GLUCOSE, FASTING 158 MG/DL (70-100); POTASSIUM SERUM 4.4 MEQ/L (3.5-5.1); SODIUM LEVEL 134 MEQ/L (136-145)
[2019-07-22] MEDS: BUDESONIDE 0.5 MG/2 ML INHALATION SUSPENSION INH SCH ×2 (07:30→19:46)
[2019-07-22] MEDS: ALBUTEROL SULFATE 2.5 MG/0.5 ML INH NEB SOLN NEB SCH ×3 (07:30→19:42)
[2019-07-22] MEDS: TIOTROPIUM INHALER/CAPSULE (SPIRIVA) INH SCH (07:30)
--- NOTE | 2019-07-22 08:54 | IPNPDOC ---
Subjective Date Seen The patient was seen on 07/22/19 Subjective Chief Complaint/HPI 78 y/o male patient presented by ambulance to ED with shortness of breath, hypoxia and coughing that started at approximately 5:30 am on 07/19/19. Patient has history of asthma with acute exasperations. Patient used his nebulizer and rescue inhaler with only minor relief. Patient has been exposed to hospital environment several times over the past week visiting his hospitalized at [place]. Respiratory Patient's daughter stated that she is not sure if he has been compliant with his asthma medications proceeding this acute respiratory dis tress episode. Nursing staff stated that at 18:00 patient was extremely agitated about not being able to have his rescue inhaler on his person, prompting him to threaten to leave hospital AMA. Patient was calmed down and remained in hospital. He also complained of reflux last night and was given Omeprazole 20 mg PO with relief. In addition, Methylprednisolone was increased from 40 mg Q8H IV to 60 mg Q8H IV. Patient is still having some shortness of breath but states he is feeling much better than yesterday. Daughter Susan Clemons is with him this morning during visit. Patient's main anxiety is about not having his rescue inhaler with him. He stated "If I cannot have it on me then I have to suffer waiting for the nurses to give me my medicine." Patient was reassured that all hospital staff are here to help him feel better and be as comfortable as possible and that I would look into. At that time patient presented an inhaler, with medication, that I took and returned to his nurse. Discussed patient changing into a gown and scrubs to be more comfortable as he was still in the same clothes admitted in, he agreed. ENT: Denies: Ear Pain, Dysphagia, Sinus Congestion, Post Nasal Drip, Sore Throat Pulmonary: Reports: Dyspnea, Cough; Denies: Pleuritic Chest Pain Cardiovascular: Denies: Chest Pain, Palpitations Gastrointestinal: Denies: Abdominal Pain Psych: Denies: Memory Issues General: Reports: Normal Appetite Constitutional: Denies: Fever, Fatigue, Lethargy ENT: Denies: Head Aches, Ear Pain, Dysphagia, Sinus Congestion, Post Nasal Drip, Sore Throat, Epistaxis Skin: Denies: Jaundice, Bruising, Itching, Nail Changes Pulmonary: Reports: Cough, Other Symptoms (SOB); Denies: Pleuritic Chest Pain Cardiovascular: Denies: Chest Pain, Palpitations, Edema Gastrointestinal: Denies: Nausea, Vomiting, Abdominal Pain, Diarrhea, Constipation Genitourinary: Denies: Dysuria, Frequency, Incontinence Endocrine: Denies: Polyuria, Heat Intolerance, Cold Intolerance Musculoskeletal: Denies: Neck Pain, Back Pain, Joint Pain, Muscle Pain, Spasms Neurological: Reports: Confusion (Mild dementia - at baseline); Denies: Weakness, Numbness, Incoordination, Change in speech, Seizures, Other Symptoms Psych: Reports: Mood Normal, Memory Issues Other systems Patient was anxious at start of visit but by end was smiling and relaxed. Objective Physical Examination General Exam: Positive: Alert, Cooperative, No Acute Distress Eye Exam: Negative: Sclera icteric ENT Exam: Positive: Pharynx Normal, Tongue Midline, Nares Patent; Negative: Pharyngeal Edema Neck Exam: Positive: Supple; Negative: JVD, thyromegaly Chest Exam: Positive: Wheezing, Other (Productive cough- clear mucus); Negative: Rales, Rhonchi Heart Exam: Positive: Rate Normal, Tachycardic, Bradycardic, Regular Rhythm, Irregular Rhythm, Normal S1, Normal S2, Other; Negative: Gallops, Murmurs, Rubs Telemetry: Positive: Sinus, Tachycardia Abdomen Exam: Positive: Normal bowel sounds, Soft; Negative: Tenderness, Hepatospenomegaly, Mass, Hernia Extremity Exam: Positive: Normal pulses; Negative: Cyanosis, Edema (trace edema), Tenderness, Swelling Skin Exam: Positive: Nl turgor and temperature Neuro Exam: Positive: Normal Gait, Normal Speech Psych Exam: Positive: Mental status NL, Anxiety, Oriented x 3, Other (Oriented to place, person, family but not date, month or number of days at [facility].) RAD Interpretation STUDY: CXR Assessment /Plan Assessment 78 year old male was presented to the ED via EMS for SOB that started 2 days ago with non productive cough and bilateral wheezing. He has been using his rescue inhaler and nebulized albuterol frequently since 07/19/19 with limited relief. Patient was transported to [facility] ED by ambulance for cough and SOB. Ambulance providers gave Decadron prior to arrival in ED. Patient's hypoxic and shortness of breath conditions improved with nebulized treatments and magnesium at rest. Upon ambulation patient's SOB and hypoxia returned. Patient was admitted for Acute asthma exacerbation with hypoxia. Respiratory Virus Panel (PCR) was negative. Today found patient alert and orientated walking in the hallway with his daughter Shayy Clemons. Patient in same clothes as when admitted. Plan 1. Asthma exacerbation Continue Albuterol Sulfate 2.5 mg RQ4H NEB, Spiriva handihaler 1-inhalation daily @ 08:00, Methylprednisolone 60 mg Q8H IV discountinued. Added Predisone 40 mg PO BID , Singulair 10 mg PO QHS, Loratadine 10 mg PO daily and Budesonide 0.5 RBID INH. 2. Hypoxia - Due to Acute asthma exacerbation Patient was no longer on oxygen and vitals show maintaining SpO2 of 95%. Abg ordered to confirm oxygen and carbon dioxide levels/acid base level 3. GERD/Hiatal hernia Continue Omeprazole 20 mg PO Daily 4. Insomnia - Ramelteon 8 mg PO QHS 5. Dementia, mild - Will get evaluation with speech therapy to evaluate cognition Plan/VTE VTE Prophylaxis Ordered?: Yes (Continue Levenox 40 mg Daily SC ) VS, I&O, 24H, Fishbone Vital Signs/I&O Vital Signs Date Time Temp Pulse Resp B/P (MAP) Pulse Ox O2 Delivery O2 Flow Rate FiO2 07/22/19 06:00 98.9 86 18 161/86 (111) 95 2.0 07/21/19 03:00 Nasal Cannula I&O- Last 24 Hours up to 6 AM 07/22/19 06:00 Intake Total 1260 ml Balance 1260 ml Laboratory Data 24H LABS Laboratory Tests 2 07/22/19 05:45: Immature Granulocyte % (Auto) 0.7, White Blood Count 17.8H, Red Blood Count 4.27L, Hemoglobin 13.1L, Hematocrit 39.6L, Mean Corpuscular Volume 92.7, Mean Corpuscular Hemoglobin 30.7, Mean Corpuscular Hemoglobin Concent 33.1, Red Cell Distribution Width 13.2, Platelet Count 255, Neutrophils (%) (Auto) 90.8H, Lymphocytes (%) (Auto) 4.3L, Monocytes (%) (Auto) 4.1, Eosinophils (%) (Auto) 0.0, Basophils (%) (Auto) 0.1, Neutrophils # (Auto) 16.2H, Lymphocytes # (Auto) 0.8L, Monocytes # (Auto) 0.7, Eosinophils # (Auto) 0.0, Basophils # (Auto) 0.0, Nucleated Red Blood Cells % (auto) 0.0, Anion Gap 4L, Glomerular Filtration Rate > 60.0, Blood Urea Nitrogen 22H, Creatinine 1.02, Sodium Level 134L, Potassium Level 4.4, Chloride Level 103, Carbon Dioxide Level 27, Calcium Level 9.4 CBC/BMP Laboratory Tests 07/22/19 05:45 Red Blood Count 4.27 L, Mean Corpuscular Volume 92.7, Mean Corpuscular Hemoglobin 30.7, Mean Corpuscular Hemoglobin Concent 33.1, Red Cell Distribution Width 13.2, Neutrophils (%) (Auto) 90.8 H, Lymphocytes (%) (Auto) 4.3 L, Monocytes (%) (Auto) 4.1, Eosinophils (%) (Auto) 0.0, Basophils (%) (Auto) 0.1, Neutrophils # (Auto) 16.2 H, Lymphocytes # (Auto) 0.8 L, Monocytes # (Auto) 0.7, Eosinophils # (Auto) 0.0, Basophils # (Auto) 0.0, Calcium Level 9.4 Microbiology Microbiology 07/21/19 Blood Culture - Preliminary, Resulted No growth after 24 hours . All specim... 07/21/19 Blood Culture - Preliminary, Resulted No growth after 24 hours . All specim... 07/21/19 Respiratory Virus Panel (PCR) (CJ) - Final, Complete GME ATTESTATION GME ATTESTATION My faculty preceptor for this patient encounter was physically present during the encounter and was fully available. All aspects of the patient interview, examination, medical decision making process, and medical care plan development were reviewed and approved by the faculty preceptor. The faculty preceptor is aware and concurs with the plan as stated in the body of this note and will attest to such by his/her cosignature. ATTENDING NOTE I, Eric Allan, have independently examined this patient and performed my own physical exam, as well as reviewed the documentation and edited where necessary. I have discussed in detail with the resident / student the findings and plan of treatment as documented by the resident / student and edited their note. I agree with their findings and treatment plan and have edited their documentation. I will continue to follow the patient during this hospital stay. CHASITY GOODEN Jul 22, 2019 08:54 ERIC ALLAN MD Jul 22, 2019 13:27
[2019-07-22] MEDS: raNITIdine SYRUP 150 MG/10 ML UDC GT SCH ×2 (10:14→20:52)
[2019-07-22] MEDS: LORATADINE 10 MG TAB PO SCH (10:14)
[2019-07-22] MEDS: ENOXAPARIN 40 MG/0.4 ML SYRINGE (J1650) SC SCH (10:14)
[2019-07-22] MEDS: OMEPRAZOLE 20 MG CAP PO SCH (10:14)
[2019-07-22] MEDS: ALBUTEROL 90 MCG/ACT 8GM HFA INHALER INH PRN ×2 (11:36→16:56)
[2019-07-22 14:00] VITALS: BP 163/88
[2019-07-22] MEDS: MONTELUKAST 10 MG TAB PO SCH (20:51)
[2019-07-22] MEDS: predniSONE 20 MG TAB PO SCH (20:51)
[2019-07-22] MEDS: RAMELTEON 8 MG TAB (ROZEREM) PO SCH (20:52)
[2019-07-22 22:00] VITALS: BP 150/72
[2019-07-23] MEDS: ALBUTEROL SULFATE 2.5 MG/0.5 ML INH NEB SOLN NEB SCH ×5 (01:31→19:39)
[2019-07-23 06:00] VITALS: BP 124/81
[2019-07-23 06:31] LABS: BASO % 0.1 % (0.0-1.0); HEMOGLOBIN 13.7 g/dl (13.5-17.5); LYMPH % 6.7 % (24.0-44.0); MEAN CORPUSCULAR HEMOGLOBIN 31.4 pg (27.0-33.0); MEAN CORPUSCULAR HGB CONC 32.6 g/dl (32.0-36.5); MEAN CORPUSCULAR VOLUME 96.3 fl (80.0-96.0); MONO % 6.1 % (0.0-5.0); NEUTROPHILS # 13.5 10^3/uL (1.8-7.7); NEUTROPHILS % 86.3 % (36.0-66.0); PLATELET COUNT, AUTOMATED 251 10^3/uL (150-450); RED BLOOD COUNT 4.36 10^6/uL (4.30-6.10); WHITE BLOOD COUNT 15.6 10^3/uL (4.0-10.0)
[2019-07-23 06:55] LABS: BLOOD UREA NITROGEN 21 MG/DL (7-18); CALCIUM LEVEL 8.7 MG/DL (8.8-10.2); CARBON DIOXIDE LEVEL 29 MEQ/L (21-32); CHLORIDE LEVEL 104 MEQ/L (98-107); CREATININE FOR GFR 1.03 MG/DL (0.70-1.30); GLOMERULAR FILTRATION RATE > 60.0 (>42); GLUCOSE, FASTING 128 MG/DL (70-100); POTASSIUM SERUM 4.1 MEQ/L (3.5-5.1); SODIUM LEVEL 138 MEQ/L (136-145)
[2019-07-23] MEDS: TIOTROPIUM INHALER/CAPSULE (SPIRIVA) INH SCH (08:03)
[2019-07-23] MEDS: BUDESONIDE 0.5 MG/2 ML INHALATION SUSPENSION INH SCH ×2 (08:03→19:39)
--- NOTE | 2019-07-23 08:21 | IPNPDOC ---
Subjective Date Seen The patient was seen on 07/23/19. Subjective Chief Complaint/HPI Patient was sleeping when arrived at his room. He stated he is feeling better than yesterday with decreased coughing. Ambulated to bathroom prior to exam without any issue. His nurse Radha Gibson stated that he had a good night with the sitter, no issues. There will not be a sitter today but they will have the camera surveillance on patient and frequent checks by nursing staff. Patient stated he is ready to go home as soon as we are ready to release him. General: Reports: Normal Appetite; Denies: Night Sweats, Fatigue Constitutional: Denies: Fever, Fatigue Eyes: Denies: Pain, Vision change, Redness ENT: Denies: Ear Pain, Dysphagia, Sinus Congestion, Post Nasal Drip, Sore Throat Skin: Denies: Rash Pulmonary: Reports: Cough; Denies: Dyspnea, Pleuritic Chest Pain Cardiovascular: Denies: Chest Pain, Palpitations, Orthopnea, Paroxysmal Noc. Dyspnea, Edema Gastrointestinal: Denies: Nausea, Vomiting, Abdominal Pain, Diarrhea, Constipation Genitourinary: Denies: Dysuria, Frequency, Incontinence Musculoskeletal: Denies: Joint Pain, Muscle Pain Neurological: Reports: Confusion; Denies: Weakness, Numbness, Incoordination, Change in speech Psych: Reports: Mood Normal, Memory Issues; Denies: Anxiety, Anger Objective Physical Examination General Exam: Positive: Alert, Cooperative, No Acute Distress Eye Exam: Negative: Sclera icteric ENT Exam: Positive: Mucous membr. moist/pink, Pharynx Normal, Tongue Midline, Nares Patent; Negative: Pharyngeal Edema Neck Exam: Positive: Supple; Negative: JVD, thyromegaly, Lymphadenopathy Chest Exam: Positive: Wheezing, Other ( Productive cough- clear; ); Negative: Rales, Rhonchi Heart Exam: Positive: Rate Normal, Regular Rhythm, Normal S1, Normal S2, Other; Negative: Gallops, Murmurs, Rubs Telemetry: Positive: Sinus Abdomen Exam: Positive: Normal bowel sounds, Soft; Negative: Tenderness, Hepatospenomegaly, Mass, Hernia Extremity Exam: Positive: Normal pulses; Negative: Cyanosis, Edema (trace edema), Tenderness, Swelling Skin Exam: Positive: Nl turgor and temperature; Negative: Rash Neuro Exam: Positive: Normal Gait, Normal Speech Psych Exam: Positive: Mental status NL, Anxiety, Oriented x 3, Other (Oriented to person but originally thought he was in [place] and not aware of the number of days he has been at [facility].) Assessment /Plan Assessment 1. Asthma exacerbation Continue Albuterol Sulfate 2.5 mg RQ4H NEB, Spiriva handihaler 1-inhalation daily @ 08:00, Predisone 40 mg PO BID reduced to Prednisone 40 mg PO daily, Singulair 10 mg PO QHS, Loratadine 10 mg PO daily and Budesonide 0.5 RBID INH. 2. Hypoxia - Resolved Patient was no longer on oxygen and vitals show maintaining SpO2 of 97%. 3. GERD/Hiatal hernia Continue Omeprazole 20 mg PO Daily 4. Insomnia - Ramelteon 8 mg PO QHS Patient took medication last night and stated that he had a good night of sleep. 5. Dementia, moderate Evaluation was done by speech stating that there was moderate cognitive impai rment. Based on evaluation the clinician felt that the patient's level of confusion would make him unsafe to be discharged home by himself without supervision. Plan/VTE VTE Prophylaxis Ordered?: Yes (Continue Levenox 40 mg Daily SC ) VS, I&O, 24H, Fishbone Vital Signs/I&O Vital Signs Date Time Temp Pulse Resp B/P (MAP) Pulse Ox O2 Delivery O2 Flow Rate FiO2 07/23/19 06:00 98.2 82 20 124/81 (95) 97 07/22/19 06:00 2.0 07/21/19 03:00 Nasal Cannula I&O- Last 24 Hours up to 6 AM 07/23/19 06:00 Intake Total 2250 ml Balance 2250 ml Laboratory Data 24H LABS Laboratory Tests 2 07/23/19 06:10: Immature Granulocyte % (Auto) 0.8, White Blood Count 15.6H, Red Blood Count 4.36, Hemoglobin 13.7, Hematocrit 42.0, Mean Corpuscular Volume 96.3H, Mean Corpuscular Hemoglobin 31.4, Mean Corpuscular Hemoglobin Concent 32.6, Red Cell Distribution Width 13.1, Platelet Count 251, Neutrophils (%) (Auto) 86.3H, Lymphocytes (%) (Auto) 6.7L, Monocytes (%) (Auto) 6.1H, Eosinophils (%) (Auto) 0.0, Basophils (%) (Auto) 0.1, Neutrophils # (Auto) 13.5H, Lymphocytes # (Auto) 1.0L, Monocytes # (Auto) 1.0H, Eosinophils # (Auto) 0.0, Basophils # (Auto) 0.0, Nucleated Red Blood Cells % (auto) 0.0, Anion Gap 5L, Glomerular Filtration Rate > 60.0, Blood Urea Nitrogen 21H, Creatinine 1.03, Sodium Level 138, Potassium Level 4.1, Chloride Level 104, Carbon Dioxide Level 29, Calcium Level 8.7L CBC/BMP Laboratory Tests 07/23/19 06:10 Red Blood Count 4.36, Mean Corpuscular Volume 96.3 H, Mean Corpuscular Hemoglobin 31.4, Mean Corpuscular Hemoglobin Concent 32.6, Red Cell Distribution Width 13.1, Neutrophils (%) (Auto) 86.3 H, Lymphocytes (%) (Auto) 6.7 L, Monocytes (%) (Auto) 6.1 H, Eosinophils (%) (Auto) 0.0, Basophils (%) (Auto) 0.1, Neutrophils # (Auto) 13.5 H, Lymphocytes # (Auto) 1.0 L, Monocytes # (Auto) 1.0 H, Eosinophils # (Auto) 0.0, Basophils # (Auto) 0.0, Calcium Level 8.7 L Microbiology Microbiology 07/21/19 Blood Culture - Preliminary, Resulted No Growth after 48 hours. All Specime... 07/21/19 Blood Culture - Preliminary, Resulted No Growth after 48 hours. All Specime... 07/21/19 Respiratory Virus Panel (PCR) (CJ) - Final, Complete GME ATTESTATION GME ATTESTATION My faculty preceptor for this patient encounter was physically present during the encounter and was fully available. All aspects of the patient interview, examination, medical decision making process, and medical care plan development were reviewed and approved by the faculty preceptor. The faculty preceptor is aware and concurs with the plan as stated in the body of this note and will attest to such by his/her cosignature. ATTENDING NOTE I, Eric Allan, have independently examined this patient and performed my own physical exam, as well as reviewed the documentation and edited where necessary. I have discussed in detail with the resident / student the findings and plan of treatment as documented by the resident / student and edited their note. I agree with their findings and treatment plan and have edited their documentation. I will continue to follow the patient during this hospital stay. CHASITY GOODEN Jul 23, 2019 08:21 ERIC ALLAN MD Jul 23, 2019 13:49
[2019-07-23] MEDS: ENOXAPARIN 40 MG/0.4 ML SYRINGE (J1650) SC SCH (08:48)
[2019-07-23] MEDS: LORATADINE 10 MG TAB PO SCH (08:48)
[2019-07-23] MEDS: predniSONE 20 MG TAB PO SCH (08:48)
[2019-07-23] MEDS: raNITIdine SYRUP 150 MG/10 ML UDC GT SCH ×3 (08:48→21:00)
[2019-07-23] MEDS: OMEPRAZOLE 20 MG CAP PO SCH (08:48)
[2019-07-23 14:00] VITALS: BP 142/80
[2019-07-23] MEDS: RAMELTEON 8 MG TAB (ROZEREM) PO SCH (20:12)
[2019-07-23] MEDS: MONTELUKAST 10 MG TAB PO SCH (20:12)
[2019-07-23 22:00] VITALS: BP 130/80
[2019-07-24 06:00] VITALS: BP 132/81
[2019-07-24 06:26] LABS: BASO % 0.2 % (0.0-1.0); EOS # 0.1 10^3/uL (0.0-0.50); EOS % 0.6 % (0.0-3.0); HEMATOCRIT 43.2 % (42.0-52.0); HEMOGLOBIN 14.3 g/dl (13.5-17.5); LYMPH # 3.1 10^3/uL (1.5-4.5); LYMPH % 27.5 % (24.0-44.0); MEAN CORPUSCULAR HEMOGLOBIN 31.8 pg (27.0-33.0); MEAN CORPUSCULAR HGB CONC 33.1 g/dl (32.0-36.5); MEAN CORPUSCULAR VOLUME 96.2 fl (80.0-96.0); MONO # 1.6 10^3/uL (0.0-0.8); MONO % 13.8 % (0.0-5.0); NEUTROPHILS # 6.5 10^3/uL (1.8-7.7); NEUTROPHILS % 57.5 % (36.0-66.0); PLATELET COUNT, AUTOMATED 245 10^3/uL (150-450); RED BLOOD COUNT 4.49 10^6/uL (4.30-6.10); WHITE BLOOD COUNT 11.3 10^3/uL (4.0-10.0)
[2019-07-24 06:47] LABS: BLOOD UREA NITROGEN 17 MG/DL (7-18); CALCIUM LEVEL 8.4 MG/DL (8.8-10.2); CARBON DIOXIDE LEVEL 31 MEQ/L (21-32); CHLORIDE LEVEL 105 MEQ/L (98-107); CREATININE FOR GFR 0.91 MG/DL (0.70-1.30); GLOMERULAR FILTRATION RATE > 60.0 (>42); GLUCOSE, FASTING 82 MG/DL (70-100); POTASSIUM SERUM 3.8 MEQ/L (3.5-5.1); SODIUM LEVEL 140 MEQ/L (136-145)
[2019-07-24] MEDS: TIOTROPIUM INHALER/CAPSULE (SPIRIVA) INH SCH (07:04)
[2019-07-24] MEDS: ALBUTEROL SULFATE 2.5 MG/0.5 ML INH NEB SOLN NEB SCH (07:04)
[2019-07-24] MEDS: BUDESONIDE 0.5 MG/2 ML INHALATION SUSPENSION INH SCH (07:04)
[2019-07-24] MEDS ORDERED: PRED10TA2 PO (08:46)
[2019-07-24] MEDS: raNITIdine SYRUP 150 MG/10 ML UDC GT SCH (09:00)
[2019-07-24] MEDS ORDERED: predniSONE 20 MG TAB PO SCH (09:00)
[2019-07-24] MEDS: ENOXAPARIN 40 MG/0.4 ML SYRINGE (J1650) SC SCH (09:06)
[2019-07-24] MEDS: OMEPRAZOLE 20 MG CAP PO SCH (09:06)
[2019-07-24] MEDS: LORATADINE 10 MG TAB PO SCH (09:06)
--- NOTE | 2019-07-24 09:09 | DS.PDOC ---
Discharge Summary General Date of Admission Jul 21, 2019 at 02:51 Date of Discharge 07/24/19 Attending Physician: ERIC CABRAL MD Discharge Summary PCP: Davey Dave M.D. PROCEDURES PERFORMED DURING STAY: None. ADMITTING/DISCHARGE DIAGNOSES: 1. Acute asthma exacerbation 2. Hypoxia 3. GERD/hiatal hernia 4. Insomnia 5. Moderate dementia COMPLICATIONS/CHIEF COMPLAINT: Shortness of breath HISTORY OF PRESENT ILLNESS/HOSPITAL COURSE: Patient is a 78-year-old male who presented to the emergency room on 07/21/2019 with a chief complaint of shortness of breath. Patient has a history of asthma. According to the patient's daughter who was present, the patient's has been hospitalized in [place] and she was the one who would take care of his medications. After she had been hospitalized, due to the patient's dementia, patient may not have been taking his medication correctly which may have led to him having an asthma exacerbation. In the hospital patient was started on IV Solu-Medrol 40 mg every 8 hours. On the second night of hospitalization, patient was an episode of difficulty breathing and required a nebulizer treatment before his next as needed treatment was due. At this time, his Solu-Medrol was increased to 60 mg every 8 hours. Patient received 2 doses of 60 mg of Solu-Medrol and the next day the patient's breathing was much improved. Patient was transitioned to oral prednisone 40 mg twice a day. Throughout the patient's hospitalization it became clear that the patient was not able to be discharged home to take care of himself due to his underlying dementia. Speech therapy was called to do a cognitive evaluation and their evaluation showed the patient has moderate cognitive impairment and that he would not be safe for discharge. A plan with family was made in order to discharge the patient home with 24/7 care by family members and friends in order to take care of the patient's medications and make sure the patient is safe at home. Family was agreeable to this plan, patient was transitioned to prednisone 40 mg daily to start his taper and patient was deemed ready for discharge on 07/24/2019. DISCHARGE MEDICATIONS: Please see below. ALLERGIES: Please see below. PHYSICAL EXAMINATION ON DISCHARGE: Vitals: (see below) General: No acute distress, laying comfortably in bed. HEENT: Moist mucous membranes. Neck: No JVD or lymphadenopathy Cardiac: RRR, No murmurs Pulm: Faint end expiratory wheezes heard scattered in bilateral lung ruiz. Abd: NT/ND + BS Ext: No edema or cyanosis LABORATORY DATA: Please see below. IMAGING: A chest x-ray performed on 07/21/2019 showed chronic-appearing changes. At that time they could not exclude subtle left basilar atelectasis. PROGNOSIS: Fair ACTIVITY: As tolerated. DIET: Regular DISCHARGE PLAN/DISPOSITION: Discharge home with 24/7 care from family and friends. DISCHARGE INSTRUCTIONS: 1. Follow-up with primary care provider within 5-10 days. 2. Taper prednisone as instructed. 3. Follow 16/06 care plan set up by Siddharth Dozier planner scheduler. 4. Return to the ER if you experience any problems DISCHARGE CONDITION: Stable. TIME SPENT ON DISCHARGE: Greater than 30 minutes. Vital Signs/I&Os Vital Signs Date Time Temp Pulse Resp B/P (MAP) Pulse Ox O2 Delivery O2 Flow Rate FiO2 07/24/19 06:00 96.9 68 20 132/81 (98) 95 07/22/19 06:00 2.0 07/21/19 03:00 Nasal Cannula I&O- Last 24 Hours up to 6 AM 07/24/19 05:59 Intake Total 1850 ml Balance 1850 ml Laboratory Data Labs 24H Laboratory Tests 2 07/24/19 05:56: Immature Granulocyte % (Auto) 0.4, White Blood Count 11.3H, Red Blood Count 4.49, Hemoglobin 14.3, Hematocrit 43.2, Mean Corpuscular Volume 96.2H, Mean Corpuscular Hemoglobin 31.8, Mean Corpuscular Hemoglobin Concent 33.1, Red Cell Distribution Width 13.0, Platelet Count 245, Neutrophils (%) (Auto) 57.5, Lymphocytes (%) (Auto) 27.5, Monocytes (%) (Auto) 13.8H, Eosinophils (%) (Auto) 0.6, Basophils (%) (Auto) 0.2, Neutrophils # (Auto) 6.5, Lymphocytes # (Auto) 3.1, Monocytes # (Auto) 1.6H, Eosinophils # (Auto) 0.1, Basophils # (Auto) 0.0, Nucleated Red Blood Cells % (auto) 0.0, Anion Gap 4L, Glomerular Filtration Rate > 60.0, Blood Urea Nitrogen 17, Creatinine 0.91, Sodium Level 140, Potassium Level 3.8, Chloride Level 105, Carbon Dioxide Level 31, Calcium Level 8.4L CBC/BMP Laboratory Tests 07/24/19 05:56 Red Blood Count 4.49, Mean Corpuscular Volume 96.2 H, Mean Corpuscular Hemoglobin 31.8, Mean Corpuscular Hemoglobin Concent 33.1, Red Cell Distribution Width 13.0, Neutrophils (%) (Auto) 57.5, Lymphocytes (%) (Auto) 27.5, Monocytes (%) (Auto) 13.8 H, Eosinophils (%) (Auto) 0.6, Basophils (%) (Auto) 0.2, Neutrophils # (Auto) 6.5, Lymphocytes # (Auto) 3.1, Monocytes # (Auto) 1.6 H, Eosinophils # (Auto) 0.1, Basophils # (Auto) 0.0, Calcium Level 8.4 L Microbiology Microbiology 07/21/19 Blood Culture - Preliminary, Resulted No Growth after 72 hours. All specime... 07/21/19 Blood Culture - Preliminary, Resulted No Growth after 72 hours. All specime... 07/21/19 Respiratory Virus Panel (PCR) (CJ) - Final, Complete Discharge Medications Scheduled Budesonide (Pulmicort Flexhaler) 90 Mcg Aer.pow.ba, 2 PUFF INH BID for craving, (Reported) Budesonide/Formoterol (Symbicort 160-4.5 Mcg Inhaler) 6 Gm Hfa.aer.ad, 2 PUFF INH BID, (Reported) Loratadine (Loratadine) 10 Mg Tab, 10 MG PO DAILY, (Reported) Montelukast Sodium (Singulair) 10 Mg Tab, 10 MG PO DAILY, (Reported) Omeprazole (Omeprazole) 20 Mg Cap, 20 MG PO DAILY, (Reported) Prednisone (Prednisone) 10 Mg Tablet, 10 MG PO TAPER Take 4 tabs daily x 3 days, then 3 tabs daily x 3 days, then 2 tabs daily x 3 days, then 1 tab daily x 3 days and stop Tiotropium [place] (Spiriva) 18 Mcg Cap.w.dev, 1 INHALATION INH DAILY, (R eported) Scheduled PRN Albuterol Sulf (Albuterol Sulfate) 2.5 Mg/3 Ml Nebu, 2.5 MG INH QID PRN for SHORTNESS OF BREATH, (Reported) Albuterol Sulfate (Proair Hfa) 108 Mcg/Act Aer, 2 PUFF INH Q4H PRN for SHORTNESS OF BREATH, (Reported) Allergies Coded Allergies: aspirin (Verified Allergy, Severe, ANAPHYLAXIS, 07/21/19) GME ATTESTATION GME ATTESTATION My faculty preceptor for this patient encounter was physically present during the encounter and was fully available. All aspects of the patient interview, examination, medical decision making process, and medical care plan development were reviewed and approved by the faculty preceptor. The faculty preceptor is aware and concurs with the plan as stated in the body of this note and will attest to such by his/her cosignature. ATTENDING NOTE I, Eric Cabral, have independently examined this patient and performed my own physical exam, as well as reviewed the documentation and edited where necessary. I have discussed in detail with the resident / student the findings and plan of treatment as documented by the resident / student and edited their note. I agree with their findings and treatment plan and have edited their documentation. I will continue to follow the patient during this hospital stay. Time spent on discharge 36 minutes HOLLY WELSH DO Jul 24, 2019 09:09 ERIC CABRAL MD Jul 24, 2019 11:01
== END 2019-07-24 10:25 | disposition home or self-care (01) | DRG 203 ==
LOC: M ED 23:50 → M ED INP 07-21 02:51 → M MSPAV 07-21 15:51
PROVIDERS: ADMIT Internal Medicine Nephrology; ATTEND Internal Medicine
DX: J45.901 Unspecified asthma with (acute) exacerbation (principal); K21.9 Gastro-esophageal reflux disease without esophagitis; K44.9 Diaphragmatic hernia without obstruction or gangrene; R09.02 Hypoxemia; D72.829 Elevated white blood cell count, unspecified; Z79.899 Other long term (current) drug therapy; G47.00 Insomnia, unspecified; F03.90 Unspecified dementia, unspecified severity, without behavioral disturbance, psychotic disturbance, mood disturbance, and anxiety

== ENCOUNTER 2019-11-08 12:46 | Emergency (ER) | payer OTHER ==
[~2019-11-08] VITALS: Ht 175.3 cm; Wt 97.3 kg
[~2019-11-08 12:46] MED LIST changes: +FISH1000 PO; +GNP1000T11 PO; +OMEP-172 PO; -OMEP20CA4 PO; -OMEP40CA2 PO; +OMEP40CA97 PO; +PRED10TA2 PO; +PULM90IN INH; +RA B1TAB7 PO; +SM S160C PO; +SPIR1CAP INH
[2019-11-08] MEDS ORDERED: IPRATROPIUM 0.5MG/ALBUTEROL 2.5MG INH SOL UD 3ML (DUONEB)(J7620) As Ordered ONE (13:10)
[2019-11-08] MEDS ORDERED: IPRATROPIUM 0.5MG/ALBUTEROL 2.5MG INH SOL UD 3ML (DUONEB)(J7620) NEB ONE (13:15)
[2019-11-08 13:25] LABS: VENOUS BASE EXCESS 2.2 (-2.0-2.0); VENOUS HCO3 30.1 MEQ/L (23.0-27.0); VENOUS O2 SATURATION 55.9 % (60.0-80.0); VENOUS PARTIAL PRESSURE CO2 60.1 mmHg (38.0-50.0); VENOUS PARTIAL PRESSURE O2 29.9 mmHg (30.0-50.0); VENOUS PH 7.317 UNITS (7.330-7.430); VENOUS STANDARD HCO3 25.3 MEQ/L; VENOUS TOTAL CO2 31.9 MEQ/L (24.0-28.0)
[2019-11-08 13:26] LABS: BASO # 0.1 10^3/uL (0.0-0.2); BASO % 0.9 % (0.0-1.0); EOS # 0.5 10^3/uL (0.0-0.5); EOS % 4.4 % (0.0-3.0); HEMATOCRIT 45.5 % (42.0-52.0); HEMOGLOBIN 14.4 g/dl (13.5-17.5); LYMPH # 1.7 10^3/uL (1.5-5.0); LYMPH % 16.1 % (24.0-44.0); MEAN CORPUSCULAR HEMOGLOBIN 30.3 pg (27.0-33.0); MEAN CORPUSCULAR HGB CONC 31.6 g/dl (32.0-36.5); MEAN CORPUSCULAR VOLUME 95.8 fl (80.0-96.0); MONO # 1.2 10^3/uL (0.0-0.8); MONO % 11.4 % (0.0-5.0); NEUTROPHILS # 6.9 10^3/uL (1.5-8.5); NEUTROPHILS % 66.9 % (36.0-66.0); PLATELET COUNT, AUTOMATED 257 10^3/uL (150-450); RED BLOOD COUNT 4.75 10^6/uL (4.30-6.10); WHITE BLOOD COUNT 10.3 10^3/uL (4.0-10.0)
[2019-11-08] MEDS ORDERED: methylPREDNISolone INJ 125 MG/2 ML VIAL (J2930) IV ONE (13:30)
[2019-11-08] MEDS: IPRATROPIUM 0.5MG/ALBUTEROL 2.5MG INH SOL UD 3ML (DUONEB)(J7620) NEB SCH ×2 (13:36→14:07)
--- NOTE | 2019-11-08 13:38 | REP ---
Portable chest x-ray: Single view. History: Dyspnea and cough. Comparison chest x-ray: July 21, 2019. Findings: EKG monitoring electrodes overlie the chest. There is plate-like atelectasis above the elevated right hemidiaphragm mild in degree. Lung ruiz are otherwise clear. There is evidence of a hiatal hernia behind the heart unchanged from the prior study. The pleural angles are sharp. Pulmonary vasculature is not increased. No significant bony abnormality. Impression: Mildly elevated right hemidiaphragm again noted. There is plate-like atelectasis in the right base above. Otherwise no acute disease. No infiltrate seen. Electronically Signed by Lee Worley MD 11/08/2019 01:29 P
[2019-11-08] MEDS ORDERED: MAG SULF 1GM/100ML (MAG RUN) 1 GM in IV 1 EA IV ONE (13:45)
[2019-11-08 13:47] LABS: INR 1.11
[2019-11-08 14:06] LABS: ALBUMIN 3.7 GM/DL (3.2-5.2); ALT/SGPT 29 U/L (12-78); BILIRUBIN,DIRECT 0.2 MG/DL (0.0-0.2); BILIRUBIN,TOTAL 0.8 MG/DL (0.2-1.0); BLOOD UREA NITROGEN 8 MG/DL (7-18); CALCIUM LEVEL 8.9 MG/DL (8.8-10.2); CARBON DIOXIDE LEVEL 30 MEQ/L (21-32); CHLORIDE LEVEL 103 MEQ/L (98-107); CK-MB VALUE MASS 5.7 NG/ML (<3.6); CPK CREATINE PHOSPHOKINASE 220 U/L (39-308); CREATININE FOR GFR 1.12 MG/DL (0.70-1.30); GLOMERULAR FILTRATION RATE > 60.0 (>42); GLUCOSE, FASTING 96 MG/DL (70-100); MB/CK RELATIVE INDEX 2.59 (< OR =4); NT-PRO BNP 118 PG/ML (<450); POTASSIUM SERUM 4.3 MEQ/L (3.5-5.1); SODIUM LEVEL 139 MEQ/L (136-145); TOTAL PROTEIN 7.3 GM/DL (6.4-8.2); TROPONIN I < 0.02 NG/ML (< 0.10)
--- NOTE | 2019-11-08 15:31 | REP ---
Bilateral lower extremity Duplex Doppler venous ultrasound: Real time compression and duplex Doppler interrogation of the bilateral lower extremity deep venous system is performed. Bilaterally, the common femoral, superficial femoral and popliteal veins are fully compressible with transducer pressure and demonstrate normal spontaneous and phasic flow, without evidence of deep venous thrombosis. Impression: No evidence of deep venous thrombosis of the bilateral lower extremity femoral popliteal venous system. Electronically Signed by Francisco Sheth MD 11/08/2019 03:22 P
[2019-11-08] MEDS ORDERED: PRED10TA2 PO (15:59)
[2019-11-08 16:01] VITALS: O2SAT 94
[2019-11-08 16:10] VITALS: BP 181/101
--- NOTE | 2019-11-09 21:59 | ECGEPIP ---
[facility] - ED Test Date: 2019-11-08 Pat Name: JEREMIE ALBA Department: Room: - Gender: Male Staff Sonographer: TC : [id number] Requested By: Em Arnold Order Number: [id number] Reading MD: Em Arnold Measurements Intervals [place] Rate: 94 P: 48 MS: 180 QRS: -62 QRSD: 103 T: 75 QT: 359 QTc: 450 Interpretive Statements SINUS RHYTHM MARKED LEFT AXIS DEVIATION INCOMPLETE RIGHT BUNDLE BRANCH BLOCK DECREASED RATE 07/21/19 Electronically Signed on 11-09-2019 21:59:46 EST by Em Arnold
== END 2019-11-08 16:20 | disposition home or self-care (01) ==
LOC: M ED 12:46
DX: J45.901 Unspecified asthma with (acute) exacerbation (principal); R60.9 Edema, unspecified; I45.19 Other right bundle-branch block; K21.9 Gastro-esophageal reflux disease without esophagitis; Z79.899 Other long term (current) drug therapy; Z88.8 Allergy status to other drugs, medicaments and biological substances
CPT/HCPCS: 36415; 71045; 80048; 80076; 82550; 82553; 82803; 83605; 83880; 84443; 84484; 85025; 85610; 87040; 87486; 87581; 87633; 87798; 93005; 93041; 93970; 96374; 96375; 99285; J2930; J3475

== ENCOUNTER 2020-01-26 21:39 | Inpatient (IN) | payer OTHER, MEDICARE ==
[~2020-01-26] VITALS: Ht 177.8 cm; Wt 92.3 kg
[~2020-01-26 21:39] MED LIST changes: -OMEP-172 PO; +OMEP1CAP73 PO
[2020-01-26] MEDS ORDERED: PRAV40TA2 PO ×2 (21:50→23:33)
[2020-01-26] MEDS ORDERED: CLAR10CA3 PO (21:52)
[2020-01-26] MEDS ORDERED: methylPREDNISolone INJ 125 MG/2 ML VIAL (J2930) IV ONE (22:00)
[2020-01-26 22:13] LABS: BASO # 0.1 10^3/uL (0.0-0.2); BASO % 1.1 % (0.0-1.0); EOS # 0.4 10^3/uL (0.0-0.5); EOS % 5.4 % (0.0-3.0); HEMATOCRIT 44.7 % (42.0-52.0); HEMOGLOBIN 14.9 g/dl (13.5-17.5); LYMPH # 2.3 10^3/uL (1.5-5.0); LYMPH % 28.7 % (24.0-44.0); MEAN CORPUSCULAR HEMOGLOBIN 30.6 pg (27.0-33.0); MEAN CORPUSCULAR HGB CONC 33.3 g/dl (32.0-36.5); MEAN CORPUSCULAR VOLUME 91.8 fl (80.0-96.0); MONO % 12.4 % (0.0-5.0); NEUTROPHILS # 4.2 10^3/uL (1.5-8.5); PLATELET COUNT, AUTOMATED 272 10^3/uL (150-450); RED BLOOD COUNT 4.87 10^6/uL (4.30-6.10); WHITE BLOOD COUNT 8.1 10^3/uL (4.0-10.0)
[2020-01-26] MEDS: IPRATROPIUM 0.5MG/ALBUTEROL 2.5MG INH SOL UD 3ML (DUONEB)(J7620) NEB PRN ×2 (22:21→22:22)
[2020-01-26 22:25] LABS: ABG BASE EXCESS 0.3 (-2.0-2.0); ABG HCO3 24.5 MEQ/L (22.0-26.0); ABG O2 SATURATION 98.1 % (95.0-99.0); ABG PARTIAL PRESSURE CO2 38.6 mmHg (35.0-45.0); ABG PARTIAL PRESSURE O2 105.1 mmHg (75.0-100.0); ABG STANDARD HCO3 24.7 MEQ/L (22.0-26.0); ABG TOTAL CO2 25.7 MEQ/L (23.0-31.0); ABG pH (ARTERIAL) 7.421 UNITS (7.350-7.450)
[2020-01-26 22:40] LABS: INFLUENZA A AMPLIFICATION NEGATIVE (NEGATIVE); INFLUENZA B AMPLIFICATION NEGATIVE (NEGATIVE)
[2020-01-26 22:47] LABS: ALBUMIN 4.3 GM/DL (3.2-5.2); ALT/SGPT 38 U/L (12-78); BILIRUBIN,DIRECT 0.3 MG/DL (0.0-0.2); BILIRUBIN,TOTAL 0.9 MG/DL (0.2-1.0); BLOOD UREA NITROGEN 10 MG/DL (7-18); CALCIUM LEVEL 9.4 MG/DL (8.8-10.2); CARBON DIOXIDE LEVEL 30 MEQ/L (21-32); CHLORIDE LEVEL 100 MEQ/L (98-107); CK-MB VALUE MASS 7.7 NG/ML (<3.6); CPK CREATINE PHOSPHOKINASE 523 U/L (39-308); FREE T4 1.09 NG/DL (0.76-1.46); GLOMERULAR FILTRATION RATE > 60.0 (>42); GLUCOSE, FASTING 104 MG/DL (70-100); MB/CK RELATIVE INDEX 1.47 (< OR =4); NT-PRO BNP 121 PG/ML (<450); POTASSIUM SERUM 3.4 MEQ/L (3.5-5.1); SODIUM LEVEL 137 MEQ/L (136-145); TOTAL PROTEIN 7.9 GM/DL (6.4-8.2); TROPONIN I < 0.02 NG/ML (< 0.10)
[2020-01-26] MEDS ORDERED: methylPREDNISolone INJ 125 MG/2 ML VIAL (J2930) IV STA (23:21)
[2020-01-26] MEDS ORDERED: MAG SULF 1GM/100ML (MAG RUN) 1 GM in IV 1 EA IV ONE (23:30)
[2020-01-26] MEDS ORDERED: BENZONATATE 100 MG CAP PO PRN (23:30)
[2020-01-26] MEDS ORDERED: MAALOX 30 ML SUSP *UDC PO PRN (23:30)
[2020-01-26] MEDS ORDERED: ACETAMINOPHEN TAB 650MG DOSE (2X325MG) PO PRN (23:30)
[2020-01-26] MEDS ORDERED: SPIR1CAP INH (23:33)
[2020-01-26] MEDS ORDERED: CLAR10TA7 PO (23:33)
[2020-01-26] MEDS ORDERED: SM S160C PO (23:33)
[2020-01-26] MEDS ORDERED: SYMB16INH INH (23:33)
--- NOTE | 2020-01-26 23:35 | HPEPDOC ---
[facility] Medical History & Physical Date of Admission Jan 26, 2020 Date of Service: Jan 26, 2020 Other Provider Lizbeth Singh Attending Physician: CUATE EVANS MD History and Physical TIME OF SERVICE: 1145PM CHIEF COMPLAINT: dyspnea HISTORY OF PRESENT ILLNESS: This is a 79 yr old M who presents with c/o of gradually worsening dyspnea since about 2PM that didn't improve despite using his nebs and inhalers more frequently. He denied having associated fever, chills, chest pain, chest tightness, runny nose or any sick contacts. He is not sure what his best peak flow reading is; he was last admitted for management of acute asthma in June of 2019. 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 HOME MEDICATIONS: Please see below. Vital Signs Date Time Temp Pulse Resp B/P (MAP) Pulse Ox O2 Delivery O2 Flow Rate FiO2 01/26/20 21:40 114 34 152/93 (112) 90 Room Air 01/26/20 22:00 97.5 01/26/20 22:21 10.0 PHYSICAL EXAMINATION: GEN: well nourished / well developed/ NAD INTEGUMENT: he doesn't have facial plethora HEENT:NCAT / lips are not / he doesn't' have pursed lip breathing / trachea midline / NC in place / maximal laryngeal height is <4cm / mucus membranes moist and pink / sclera anicteric CVS: RRR/ there is no P-pulmonale / radial pulses are diminished / no lower extremity edema LUNGS: there is no nasal flaring / he is able to speak full sentences without stopping to take a breath /he is not using accessory muscles / there is decreased respiratory expansion/ inspiratory breath sounds are diminished and he has end wheezing ABDOMEN: soft & not tender with palpation MSK/EXTREMITIES: he doesn't have finger nail clubbing NEURO: CN 2-12 are grossly intact / speech is not dysarthric / he is a bit tremulous PSYCH: alert and oriented to person place and time/ able to understand and follow all commands LABORATORY DATA: IMAGING: Chest x-ray appears unremarkable but the final read is pending MICROBIOLOGY: Please see below. ASSESSMENT: Mr. Davis is a 79-year-old with past history of asthma and GERD who is admitted for management of an asthma exacerbation. PLAN: 1. Acute Asthma Trigger likely viral URI vs seasonal pollen or changes in weather His chest x-ray , respiratory panel & ABG are unremarkable He meets criteria for admission because he has had a poor response to to therapy in ED and his bedside peak flow reading is 150 while his expected peak flow for his height and age is about 456. Plan: admit to PCU / f/u respiratory panel / Magnesium IV / c/w supplemental O2 / continuous pulse ox / f/u serial peak flow readings / Dunebs Q6H, Albuterol Q1HP / start Prednisone tomorrow w PPI to prevent steroid induced ulcer / c/w montelukast / Tessalon Pearls / he should receive Inhaler technique education when more stable 2. Hypokalemia 2/2 nebs - Plan: replete K & f/u Mag 3. Mildly Elevated CPK - Plan: IVF / trend CPK 4. GERD - Plan: PPI DVT PROPHYLAXIS: Lovenox DISPOSITION: home after more than 2 midnight's stay Home Medications Scheduled Budesonide/Formoterol (Symbicort 160-4.5 Mcg Inhaler) 6 Gm Hfa.aer.ad, 2 PUFF INH BID Loratadine (Claritin) 10 Mg Tablet, 10 MG PO DAILY Montelukast Sodium (Singulair) 10 Mg Tab, 10 MG PO DAILY Omeprazole (Omeprazole) 20 Mg Cap, 20 MG PO DAILY Pravastatin Sodium (Pravastatin Sodium) 40 Mg Tablet, 40 MG PO DAILY Saw Mascot (Saw Mascot) 160 Mg Capsule, 160 MG PO DAILY Tiotropium [place] (Spiriva) 18 Mcg Cap.w.dev, 1 INHALATION INH DAILY Scheduled PRN Albuterol Sulf (Albuterol Sulfate) 2.5 Mg/3 Ml Nebu, 2.5 MG INH QID PRN for SHORTNESS OF BREATH Albuterol Sulfate (Proair Hfa) 108 Mcg/Act Aer, 2 PUFF INH Q4H PRN for SHORTNESS OF BREATH Allergies Coded Allergies: aspirin (Verified Allergy, Severe, ANAPHYLAXIS, 07/21/19) A-FIB/CHADSVASC A-FIB History Current/History of A-Fib/PAF?: No Current PO Anticoag Therapy: No CUATE EVANS MD Jan 26, 2020 23:35
[2020-01-26] MEDS ORDERED: POTASSIUM CHLORIDE 10 MEQ SR TABLET PO ONE (23:45)
[2020-01-26] MEDS ORDERED: NS 1,000 ML IV SCH (23:45)
[2020-01-27] VITALS (10 sets, daily range): BP systolic 118–136; BP diastolic 71–93; O2SAT 95–97
[2020-01-27] MEDS: IPRATROPIUM 0.5MG/ALBUTEROL 2.5MG INH SOL UD 3ML (DUONEB)(J7620) NEB SCH ×2 (02:34→06:50)
[2020-01-27 05:17] LABS: HEMOGLOBIN 14.1 g/dl (13.5-17.5); MEAN CORPUSCULAR HEMOGLOBIN 30.6 pg (27.0-33.0); MEAN CORPUSCULAR HGB CONC 33.6 g/dl (32.0-36.5); MEAN CORPUSCULAR VOLUME 91.1 fl (80.0-96.0); PLATELET COUNT, AUTOMATED 249 10^3/uL (150-450); RED BLOOD COUNT 4.61 10^6/uL (4.30-6.10); WHITE BLOOD COUNT 7.3 10^3/uL (4.0-10.0)
[2020-01-27 05:38] LABS: BLOOD UREA NITROGEN 12 MG/DL (7-18); CALCIUM LEVEL 9.5 MG/DL (8.8-10.2); CARBON DIOXIDE LEVEL 28 MEQ/L (21-32); CHLORIDE LEVEL 101 MEQ/L (98-107); CREATININE FOR GFR 1.19 MG/DL (0.70-1.30); GLOMERULAR FILTRATION RATE > 60.0 (>42); GLUCOSE, FASTING 166 MG/DL (70-100); MAGNESIUM LEVEL 2.4 MG/DL (1.8-2.4); SODIUM LEVEL 135 MEQ/L (136-145)
[2020-01-27] MEDS ORDERED: ALBUTEROL SULFATE 2.5 MG/0.5 ML INH NEB SOLN NEB PRN (06:45)
--- NOTE | 2020-01-27 07:13 | ECGEPIP ---
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
[2020-01-27] MEDS: MONTELUKAST 10 MG TAB PO SCH (07:38)
[2020-01-27] MEDS: PANTOPRAZOLE 40MG TAB (PROTONIX) PO SCH ×2 (07:38→10:48)
[2020-01-27] MEDS: PRAVASTATIN 20 MG TAB PO SCH ×2 (07:38→10:48)
[2020-01-27] MEDS: predniSONE 20 MG TAB PO SCH (07:38)
[2020-01-27] MEDS: LORATADINE 10 MG TAB PO SCH ×2 (07:38→10:47)
[2020-01-27] MEDS: ENOXAPARIN 40 MG/0.4 ML SYRINGE (J1650) SC SCH (07:39)
--- NOTE | 2020-01-27 07:55 | REP ---
Portable chest x-ray: Two views presented. History: Chest pain. Comparison study: November 08, 2019. Findings: Right hemidiaphragm remains elevated unchanged. Heart is not enlarged. The lungs are otherwise well inflated and clear. There is evidence of a hiatal hernia again noted. The thoracic aorta somewhat tortuous. Pulmonary vasculature is not increased. There are degenerative changes in the shoulders. Impression: Elevated right hemidiaphragm. Hiatal hernia. Otherwise no acute disease. Electronically Signed by Lee Worley MD 01/27/2020 07:47 A
[2020-01-27] MEDS: LEVALBUTEROL 1.25 MG/0.5 ML CONCENTRATE NEB NEB SCH ×3 (08:00→19:03)
--- NOTE | 2020-01-27 09:43 | IPNPDOC ---
Subjective Date Seen The patient was seen on 01/27/20. Subjective Chief Complaint/HPI Patient is feeling much better, decreased shortness of breath General: Denies: ROS Unobtainable, Chills, Night Sweats, Fatigue, Malaise, Normal Appetite, Other Symptoms Constitutional: Denies: Chills, Fever, Malaise, Night Sweats, Weakness, Fatigue, Weight Loss, Lethargy, Other Skin: Denies: Rash, Lesions, Jaundice, Bruising, Itching, Dry, Breakdown, Nail Changes, Other Pulmonary: Denies: Dyspnea, Cough, Pleuritic Chest Pain, Other Symptoms Cardiovascular: Denies: Chest Pain, Palpitations, Orthopnea, Paroxysmal Noc. Dyspnea, Edema, Lt Headedness, Other Symptoms Endocrine: Denies: Polydipsia, Polyphagia, Polyuria, Heat Intolerance, Cold Intolerance, Other Endocrine Sx Musculoskeletal: Denies: Neck Pain, Back Pain, Shoulder Pain, Arm Pain, Hand Pain, Leg Pain, Foot Pain, Joint Pain, Muscle Pain, Spasms, Other Symptoms Neurological: Denies: Weakness, Numbness, Incoordination, Change in speech, Confusion, Seizures, Other Symptoms Objective Physical Examination General Exam: Positive: Alert, Cooperative ENT Exam: Positive: Atraumatic, Mucous membr. moist/pink Neck Exam: Positive: Supple Chest Exam: Positive: Wheezing (decreased breath sounds with decreased bilateral wheezing) Heart Exam: Positive: Rate Normal, Normal S1, Normal S2 Abdomen Exam: Positive: Normal bowel sounds, Soft Extremity Exam: Positive: Normal pulses Skin Exam: Positive: Nl turgor and temperature Assessment /Plan Problems (1) Asthma exacerbation Status: Acute Problem Text: Trigger likely viral URI vs seasonal pollen or changes in weather His chest x-ray , respiratory panel & ABG are unremarkable He meets criteria for admission because he has had a poor response to to therapy in ED and his bedside peak flow reading is 150 while his expected peak flow for his height and age is about 456. Changing DuoNeb to Xopenex secondary to tachycardia Continue prednisone 40 mg by mouth daily Possible discharge tomorrow PT eval (2) Hypokalemia Status: Resolved Problem Text: Repeat potassium levels are within normal range Plan/VTE VTE Prophylaxis Ordered?: Yes VS, I&O, 24H, Fishbone Vital Signs/I&O Vital Signs Date Time Temp Pulse Resp B/P (MAP) Pulse Ox O2 Delivery O2 Flow Rate FiO2 01/27/20 08:00 3.0 01/27/20 08:00 95 Nasal Cannula 01/27/20 08:00 97.7 104 22 131/83 (99) I&O- Last 24 Hours up to 6 AM 01/27/20 06:00 Intake Total 500 ml Balance 500 ml Laboratory Data 24H LABS Laboratory Tests 2 01/26/20 21:56: Immature Granulocyte % (Auto) 0.4, Neutrophils (%) (Auto) 52.0, Lymphocytes (%) (Auto) 28.7, Monocytes (%) (Auto) 12.4H, Eosinophils (%) (Auto) 5.4H, Basophils (%) (Auto) 1.1H, Neutrophils # (Auto) 4.2, Lymphocytes # (Auto) 2.3, Monocytes # (Auto) 1.0H, Eosinophils # (Auto) 0.4, Basophils # (Auto) 0.1, Nucleated Red Blood Cells % (auto) 0.0, Anion Gap 7L, Glomerular Filtration Rate > 60.0, Calcium Level 9.4, Total Bilirubin 0.9, Direct Bilirubin 0.3H, Aspartate Amino Transf (AST/SGOT) 35, Alanine Aminotransferase (ALT/SGPT) 38, Alkaline Phosphatase 70, Total Creatine Kinase 523H, Creatine Kinase MB 7.7H, Creatine Kinase MB Relative Index 1.47, Troponin I < 0.02, VD-Utq-C-Type Natriuretic Peptide 121, Total Protein 7.9, Albumin 4.3, Albumin/Globulin Ratio 1.19, Thyroid Stimulating Hormone (TSH) 2.650, Free Thyroxine 1.09 01/26/20 22:01: Influenza Type A (RT-PCR) NEGATIVE, Influenza Type B (RT-PCR) NEGATIVE 01/26/20 22:09: Blood Gas Bicarbonate Standard 24.7, Arterial Blood pH 7.421, Arterial Blood Partial Pressure CO2 38.6, Arterial Blood Partial Pressure O2 105.1H, Arterial Blood Total CO2 25.7, Arterial Blood HCO3 24.5, Arterial Blood Base Excess 0.3, Arterial Blood Oxygen Saturation 98.1 01/27/20 04:51: Nucleated Red Blood Cells % (auto) 0.0, Anion Gap 6L, Glomerular Filtration Rate > 60.0, Calcium Level 9.5, Total Creatine Kinase 402H, Magnesium Level 2.4 CBC/BMP Laboratory Tests 01/26/20 21:56 01/27/20 04:51 RADHA ANDREWS MD Jan 27, 2020 09:43
[2020-01-27] MEDS: CALCIUM CARBONATE 500 MG CHEW U/D PO PRN ×2 (11:02→16:53)
[2020-01-27] MEDS ORDERED: HALOPERIDOL 5 MG/ML VIAL (J1630) IM PRN (15:15)
[2020-01-28] MEDS: LEVALBUTEROL 1.25 MG/0.5 ML CONCENTRATE NEB NEB SCH ×2 (02:01→08:14)
[2020-01-28] MEDS ORDERED: hydrOXYzine 25 MG TAB PO PRN (04:30)
[2020-01-28 06:00] VITALS: BP 117/72
[2020-01-28] MEDS: ENOXAPARIN 40 MG/0.4 ML SYRINGE (J1650) SC SCH ×2 (09:00→10:05)
[2020-01-28] MEDS ORDERED: BENZ-18 PO (09:38)
[2020-01-28] MEDS ORDERED: PRED10TA2 PO (09:38)
[2020-01-28 10:00] VITALS: BP 120/70
[2020-01-28] MEDS: LORATADINE 10 MG TAB PO SCH (10:04)
[2020-01-28] MEDS: predniSONE 20 MG TAB PO SCH (10:04)
[2020-01-28] MEDS: MONTELUKAST 10 MG TAB PO SCH (10:04)
[2020-01-28] MEDS: PRAVASTATIN 20 MG TAB PO SCH (10:05)
[2020-01-28] MEDS: PANTOPRAZOLE 40MG TAB (PROTONIX) PO SCH (10:05)
--- NOTE | 2020-01-28 11:00 | DS.PDOC ---
Discharge Summary General Date of Admission Jan 26, 2020 at 23:21 Date of Discharge 01/28/20 Discharge Summary PROCEDURES PERFORMED DURING STAY: None. ADMITTING DIAGNOSES: 1. Exacerbation of asthma. DISCHARGE DIAGNOSES: 1. Exacerbation of asthma. Hypokalemia. COMPLICATIONS/CHIEF COMPLAINT: Asthma Exacerbation. HISTORY OF PRESENT ILLNESS: This is a 79 yr old M who presents with c/o of gradually worsening dyspnea since about 2PM that didn't improve despite using his nebs and inhalers more frequently. He denied having associated fever, chills , chest pain, chest tightness, runny nose or any sick contacts. He is not sure what his best peak flow reading is; he was last admitted for management of acute asthma in June of 2019.. HOSPITAL COURSE: (1) Asthma exacerbation Patient was admitted with exacerbation of asthma Trigger likely viral URI vs seasonal pollen or changes in weather His chest x-ray , respiratory panel & ABG are unremarkable He meets criteria for admission because he has had a poor response to to therapy in ED and his bedside peak flow reading is 150 while his expected peak flow for his height and age is about 456. Duo nebs were changed to Xopenex secondary to tachycardia and patient responded very well to the to Xopenex as well as by mouth prednisone Patient was later on continued on of prednisone 40 mg by mouth daily with good improvement in his symptoms Patient most likely will be discharged home today once cleared by physical therapy as clinically. He is asymptomatic, afebrile and no more wheezing audible (2) Hypokalemia Patient hypokalemia, resolved with repeated potassium supplements Most likely secondary to nebulizer treatment. He became hypokalemic He will follow with PCP and get the repeat blood work done as needed . DISCHARGE MEDICATIONS: Please see below. ALLERGIES: Please see below. PHYSICAL EXAMINATION ON DISCHARGE: VITAL SIGNS: Please see below. GENERAL: Within normal limits HEENT: Isabel extraocular muscles intact NECK: Supple CARDIOVASCULAR EXAMINATION: S1, S2, regular RESPIRATORY EXAMINATION: Clear to A&P ABDOMINAL EXAMINATION: Benign EXTREMITIES: No clubbing, cyanosis, edema SKIN: Normal NEUROLOGICAL EXAMINATION: No focal motor sensory deficit PSYCHIATRIC EXAMINATION: Normal LABORATORY DATA: Please see below. IMAGING: Chest x-ray:Impression: Elevated right hemidiaphragm. Hiatal hernia. Otherwise no acute disease. PROGNOSIS: Good ACTIVITY: As tolerated. DIET: As tolerated DISCHARGE PLAN: Follow with PCP in one week DISPOSITION: . Home DISCHARGE INSTRUCTIONS: 1. . ITEMS TO FOLLOWUP ON ON OUTPATIENT: 1. Follow PCP in one week. DISCHARGE CONDITION: Stable. TIME SPENT ON DISCHARGE: 36 minutes. Vital Signs/I&Os Vital Signs Date Time Temp Pulse Resp B/P (MAP) Pulse Ox O2 Delivery O2 Flow Rate FiO2 01/28/20 10:00 98.5 93 22 120/70 (87) 95 Room Air 01/27/20 12:00 3.0 I&O- Last 24 Hours up to 6 AM 01/28/20 06:00 Intake Total 2130 ml Balance 2130 ml Discharge Medications Scheduled Budesonide/Formoterol (Symbicort 160-4.5 Mcg Inhaler) 6 Gm Hfa.aer.ad, 2 PUFF INH BID, (Reported) Loratadine (Claritin) 10 Mg Tablet, 10 MG PO DAILY, (Reported) Montelukast Sodium (Singulair) 10 Mg Tab, 10 MG PO DAILY, (Reported) Omeprazole (Omeprazole) 20 Mg Cap, 20 MG PO DAILY, (Reported) Pravastatin Sodium (Pravastatin Sodium) 40 Mg Tablet, 40 MG PO DAILY, (Reported) Prednisone (Prednisone) 10 Mg Tablet, 10 MG PO TAPER Take 4 tabs daily x 3 days, then 3 tabs daily x 3 days, then 2 tabs daily x 3 days, then 1 tab daily x 3 days and stop Saw Sheridan (Saw Sheridan) 160 Mg Capsule, 160 MG PO DAILY, (Reported) Tiotropium [place] (Spiriva) 18 Mcg Cap.w.dev, 1 INHALATION INH DAILY, (Reported) Scheduled PRN Albuterol Sulf (Albuterol Sulfate) 2.5 Mg/3 Ml Nebu, 2.5 MG INH QID PRN for SHORTNESS OF BREATH, (Reported) Albuterol Sulfate (Proair Hfa) 108 Mcg/Act Aer, 2 PUFF INH Q4H PRN for SHORTNESS OF BREATH, (Reported) Benzonatate (Benzonatate) 100 Mg Capsule, 200 MG PO Q8HP PRN for cough Allergies Coded Allergies: aspirin (Verified Allergy, Severe, ANAPHYLAXIS, 07/21/19) RADHA ANDREWS MD Jan 28, 2020 11:00
== END 2020-01-28 11:52 | disposition home or self-care (01) | DRG 203 ==
LOC: M ED 21:39 → M ED INP 23:21 → ENRESERVDT 23:48 → ENRESERVTM 23:48 → M ICU 01-27 00:54 → M MSPAV 01-27 21:03
PROVIDERS: ADMIT Internal Medicine; ATTEND Internal Medicine
DX: J45.901 Unspecified asthma with (acute) exacerbation (principal); K21.9 Gastro-esophageal reflux disease without esophagitis; E87.6 Hypokalemia; R74.8 Abnormal levels of other serum enzymes; Z79.899 Other long term (current) drug therapy; Z88.6 Allergy status to analgesic agent; K44.9 Diaphragmatic hernia without obstruction or gangrene; J98.6 Disorders of diaphragm

== ENCOUNTER 2020-09-08 19:13 | Emergency (ER) | payer MEDICARE ==
[~2020-09-08] VITALS: Ht 177.8 cm; Wt 81.8 kg
[~2020-09-08 19:13] MED LIST changes: +BENZ-18 PO; +CLAR10TA7 PO; +PRAV40TA2 PO; +VITA-243 PO; -VITA500T PO
[2020-09-08 20:02] LABS: BASO # 0.1 10^3/uL (0.0-0.2); BASO % 0.8 % (0.0-1.0); EOS % 0.1 % (0.0-3.0); HEMATOCRIT 40.1 % (42.0-52.0); HEMOGLOBIN 13.5 g/dl (13.5-17.5); LYMPH % 12.3 % (24.0-44.0); MEAN CORPUSCULAR HEMOGLOBIN 33.2 pg (27.0-33.0); MEAN CORPUSCULAR HGB CONC 33.7 g/dl (32.0-36.5); MEAN CORPUSCULAR VOLUME 98.5 fl (80.0-96.0); MONO # 0.7 10^3/uL (0.0-0.8); MONO % 9.3 % (0.0-5.0); NEUTROPHILS # 6.1 10^3/uL (1.5-8.5); NEUTROPHILS % 77.2 % (36.0-66.0); PLATELET COUNT, AUTOMATED 230 10^3/uL (150-450); RED BLOOD COUNT 4.07 10^6/uL (4.30-6.10); WHITE BLOOD COUNT 7.9 10^3/uL (4.0-10.0)
--- NOTE | 2020-09-08 20:21 | REPVR ---
PROCEDURE INFORMATION: Exam: XR Chest, 1 View Exam date and time: 09/08/2020 8:05 PM Age: 79 years old Clinical indication: Cough; Additional info: Dyspnea/cough TECHNIQUE: Imaging protocol: XR of the chest Views: 1 view. COMPARISON: [facility] PORT[facility] CHEST [facility] 01/26/2020 9:56 PM FINDINGS: Heart/Mediastinum: The heart is normal in size. There is severe elevation of the right hemidiaphragm which is very similar on the examination of 07/21/2019. A density posterior to the cardiac silhouette is probably a prominent hiatal hernia. The lungs are otherwise clear. Bones/joints: There is no evidence of bony abnormality. IMPRESSION: 1. Chronic elevation of the right hemidiaphragm. 2. Prominent hiatal hernia. 3. No evidence of acute infiltrate. Electronically signed by: Bryce Flores On 09/08/2020 20:21:22 PM
[2020-09-08] MEDS ORDERED: COMBIVENT RESPIMAT 100-20MCG INHALER 4GM INH STA (20:25)
[2020-09-08 20:30] VITALS: BP 161/92
[2020-09-08] MEDS ORDERED: methylPREDNISolone 125MG 2ML VIAL IV ONE (20:30)
[2020-09-08 20:34] LABS: ALBUMIN 3.9 GM/DL (3.2-5.2); ALT/SGPT 42 U/L (12-78); BILIRUBIN,DIRECT 0.2 MG/DL (0.0-0.2); BILIRUBIN,TOTAL 0.8 MG/DL (0.2-1.0); BLOOD UREA NITROGEN 9 MG/DL (7-18); CALCIUM LEVEL 8.8 MG/DL (8.8-10.2); CARBON DIOXIDE LEVEL 26 MEQ/L (21-32); CHLORIDE LEVEL 105 MEQ/L (98-107); CREATININE FOR GFR 1.08 MG/DL (0.70-1.30); GLOMERULAR FILTRATION RATE > 60.0 (>42); GLUCOSE, FASTING 116 MG/DL (70-100); POTASSIUM SERUM 3.6 MEQ/L (3.5-5.1); SODIUM LEVEL 140 MEQ/L (136-145); TOTAL PROTEIN 7.1 GM/DL (6.4-8.2)
[2020-09-08] MEDS ORDERED: PRED10TA2 PO (21:53)
--- NOTE | 2020-09-09 08:06 | ECGEPIP ---
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
== END 2020-09-08 22:11 | disposition home or self-care (01) ==
LOC: M ED 19:13
DX: J45.901 Unspecified asthma with (acute) exacerbation (principal); R00.0 Tachycardia, unspecified; I45.19 Other right bundle-branch block; I44.4 Left anterior fascicular block; F03.90 Unspecified dementia, unspecified severity, without behavioral disturbance, psychotic disturbance, mood disturbance, and anxiety; K44.9 Diaphragmatic hernia without obstruction or gangrene; J98.6 Disorders of diaphragm; Z79.899 Other long term (current) drug therapy; Z88.8 Allergy status to other drugs, medicaments and biological substances
CPT/HCPCS: 71045; 80048; 80076; 85025; 93005; 93041; 94640; 94760; 96374; 99285; J2930

== ENCOUNTER 2021-01-16 11:30 | Inpatient (IN) | payer MEDICARE, OTHER ==
[~2021-01-16] VITALS: Ht 180.3 cm; Wt 73.7 kg
--- OUTSIDE RECORDS SUMMARY | 2021-01-16 11:34 | CCD ---
Author Author [facility] Organization [facility] Address Unknown Phone Unavailable Care Team Providers Care Tire Care Manager Name Role Phone PEETS, Karen ARTHUR MD Unavailable Unavailable PEETS, Karen ARTHUR MD Unavailable Unavailable PEETS, Karen ARTHUR MD Unavailable Unavailable PEETS, Karen ARTHUR MD Unavailable Unavailable PEETS, Karen ARTHUR MD Unavailable Unavailable PEETS, Karen ARTHUR MD Unavailable Unavailable PEETS, Karen ARTHUR MD Unavailable Unavailable PEETS, Karen ARTHUR MD Unavailable Unavailable PEETS, Karen ARTHUR MD Unavailable Unavailable PEETS, Karen ARTHUR MD Unavailable Unavailable PEETS, Karen ARTHUR MD Unavailable Unavailable PEETS, Karen ARTHUR MD Unavailable Unavailable PEETS, Karen ARTHUR MD Unavailable Unavailable PEETS, Karen ARTHUR MD Unavailable Unavailable PEETS, Karen ARTHUR MD Unavailable Unavailable PEETS, Karen ARTHUR MD Unavailable Unavailable PEETS, Karen ARTHUR MD Unavailable Unavailable PEETS, Karen ARTHUR MD Unavailable Unavailable PEETS, Karen ARTHUR MD Unavailable Unavailable PEETS, Karen ARTHUR MD Unavailable Unavailable PEETS, Karen ARTHUR MD Unavailable Unavailable PEETS, Karen ARTHUR MD Unavailable Unavailable PEETS, Karen ARTHUR MD Unavailable Unavailable PEETS, Karen ARTHUR MD Unavailable Unavailable PEETS, Karen ARTHUR MD Unavailable Unavailable PEETS, Karen ARTHUR MD Unavailable Unavailable PEETS, Karen ARTHUR MD Unavailable Unavailable PEETS, Karen ARTHUR MD Unavailable Unavailable PEETS, Karen ARTHUR MD Unavailable Unavailable Re-disclosure Warning The records that you are about to access may contain information from federally-assisted alcohol or drug abuse programs. If such information is present, then the following federally mandated warning applies: This information has been disclosed to you from records protected by federal confidentiality rules (42 CFR part 2). The federal rules prohibit you from making any further disclosure of this information unless further disclosure is expressly permitted by the written consent of the person to whom it pertains or as otherwise permitted by 42 CFR part 2. A general authorization for the release of medical or other information is NOT sufficient for this purpose. The Federal rules restrict any use of the information to criminally investigate or prosecute any alcohol or drug abuse patient.The records that you are about to access may contain highly sensitive health information, the redisclosure of which is protected by Article 27-F of the [facility] Public Health law. If you continue you may have access to information: Regarding HIV / AIDS; Provided by facilities licensed or operated by the [facility] Office of Mental Health; or Provided by the [facility] Office for People With Developmental Disabilities. If such information is present, then the following [facility] mandated warning applies: This information has been disclosed to you from confidential records which are protected by state law. State law prohibits you from making any further disclosure of this information without the specific written consent of the person to whom it pertains, or as otherwise permitted by law. Any unauthorized further disclosure in violation of state law may result in a fine or mcc sentence or both. A general authorization for the release of medical or other information is NOT sufficient authorization for further disc losure. Encounters Encounter Providers Location Date Indications Data Source(s ) Outpatient Referrer: SANDHYA FRIED MD 02/17/2020 06:00:00 AM EDT [facility] Outpatient Referrer: SANDHYA FRIED MD 02/13/2020 09:59:00 PM EDT [facility] Outpatient Referrer: SANDHYA FRIED MD 01/31/2020 12:35:00 PM EDT [facility] Medications Medication Brand Name Start Date Product Form Dose Route Admi nistrative Instructions Pharmacy Instructions Status Indications Reaction Description Data Source(s) benzonatate 100 MG Oral Capsule BENZONATATE 01/28/2020 12:00:00 AM EST capsule 20 TAKE ONE CAPSULE BY MOUTH EVERY 8 HOURS NEEDED FOR COUGH TAKE ONE CAPSULE BY MOUTH EVERY 8 HOURS NEEDED FOR COUGH SOLD: 01/29/2020 [facility] 10 mg 01/28/2020 12:00:00 AM EST tablet 30 TAKE FOUR TABLETS BY MOUTH EVERY DAY FOR 3 DAYS THEN 3 ONCE DAILY FOR 3 DAYS THEN 2 ONCE DAILY FOR 3 DAYS THEN 1 ONCE DAILY FOR 3 DAYS THEN STOP TAKE FOUR TABLETS BY MOUTH EVERY DAY FOR 3 DAYS THEN 3 ONCE DAILY FOR 3 DAYS THEN 2 ONCE DAILY FOR 3 DAYS THEN 1 ONCE DAILY FOR 3 DAYS THEN STOP SOLD: 01/29/2020 [facility] Insurance Providers Payer name Policy type / Coverage type Policy ID Covered democrat ID Covered democrat's relationship to may Policy May Plan Information 'S ADMINISTRATION [id number] SP [id number] [place] [id number] SP [id number] [place] O [id number] S [id number] [place]ST O [id number] S [id number] MEDICARE C [id number] S [id number] W68 [facility]/136E O [id number] S [id number] MEDICARE [id number] SP [id number] MEDICARE [id number] SP [id number] MEDICARE [id number] SP [id number] [facility] [id number] SP [id number] MEDICARE C [id number] S [id number] A MEDICARE [id number] SP [id number] A SELF PAY SP
--- NOTE | 2021-01-16 12:07 | REP ---
INDICATION: Altered Mental Status. COMPARISON: None. TECHNIQUE: Helical scanning is acquired. 5 mm axial images were reformatted. Coronal MPR images were generated. FINDINGS: Bone window settings demonstrate an intact bony calvarium. There is no evidence of skull fracture or incidental bony calvarial lesion. The visualized paranasal sinuses appear clear. No intraorbital abnormality is seen. On soft tissue window setting images; the lateral, third, and fourth ventricles are normal in size and position. Sheth-white differentiation pattern is normal above and below the tentorium. There are is no evidence of intracranial hemorrhage. No mass, edema, infarction, or midline shift is seen. No extra-axial fluid collection is appreciated. There is generalized volume loss. Small-vessel atherosclerotic changes are noted in the periventricular white matter bilaterally. IMPRESSION: Generalized volume loss and small vessel changes. No acute intracranial abnormality.. <Electronically signed by Derrek Worley > 01/16/21 [id number]
[2021-01-16 12:24] LABS: BASO # 0.1 10^3/uL (0.0-0.2); BASO % 1.1 % (0.0-1.0); EOS # 0.1 10^3/uL (0.0-0.5); EOS % 1.6 % (0.0-3.0); HEMATOCRIT 38.9 % (42.0-52.0); HEMOGLOBIN 13.8 g/dl (13.5-17.5); LYMPH % 16.4 % (24.0-44.0); MEAN CORPUSCULAR HEMOGLOBIN 37.2 pg (27.0-33.0); MEAN CORPUSCULAR HGB CONC 35.5 g/dl (32.0-36.5); MEAN CORPUSCULAR VOLUME 104.9 fl (80.0-96.0); MONO # 0.8 10^3/uL (0.0-0.8); MONO % 13.1 % (2.0-8.0); NEUTROPHILS # 4.3 10^3/uL (1.5-8.5); PLATELET COUNT, AUTOMATED 285 10^3/uL (150-450); RED BLOOD COUNT 3.71 10^6/uL (4.30-6.10); WHITE BLOOD COUNT 6.4 10^3/uL (4.0-10.0)
--- OUTSIDE RECORDS SUMMARY | 2021-01-16 12:29 | CCD ---
Author Author [facility] Organization [facility] Address Unknown Phone Unavailable Care Team Providers Care Ward Secretary Name Role Phone PEETS, Karen ARTHUR MD [...] is protected by Article 27-F of the [facility] Public Health law. If you continue you may have access to information: Regarding HIV / AIDS; Provided by facilities licensed or operated by the [facility] Office of Mental Health; or Provided by the [facility] Office for People With Developmental Disabilities. If such information is present, then the following [facility] mandated warning applies: This information has been [...] law may result in a fine or custodial sentence or both. A general authorization for the release of medical or other information is NOT sufficient authorization for further disc losure. Encounters Encounter Providers Location Date Indications Data Source(s ) Outpatient Referrer: SANDHYA FRIED MD 02/17/2020 06:00:00 AM EDT [facility] Outpatient Referrer: SANDHYA FRIED MD 02/13/2020 09:59:00 PM EDT [facility] Outpatient Referrer: SANDHYA FRIED MD 01/31/2020 12:35:00 PM EDT [facility] Medications Medication Brand Name Start [...] type / Coverage type Policy ID Covered libertarian ID Covered libertarian's relationship to may Policy May Plan Information MEDICARE [id number] SP [id number] W68 'S ADMINISTRATION [id number] SP [id number] [place] CCN OPTUM [id number] SP [id number] [place]UM [place] O [id number] S [id number] WEST O [id number] S [id number] MEDICARE C [id number] S [id number] W68 [place] [id number] S [id number] MEDICARE [id number] SP [id number] W68 MEDICARE [id number] SP [id number] [facility] [id number] SP [id number] MEDICARE C [id number] S [id number] A MEDICARE [id number] SP [id number] A SELF PAY SP
[2021-01-16 13:02] LABS: ACETAMINOPHEN LEVEL < 2.0 UG/ML (10.0-30.0); ALBUMIN 3.7 GM/DL (3.2-5.2); ALT/SGPT 63 U/L (12-78); BILIRUBIN,DIRECT 0.3 MG/DL (0.0-0.2); BILIRUBIN,TOTAL 1.1 MG/DL (0.2-1.0); BLOOD UREA NITROGEN 10 MG/DL (7-18); CALCIUM LEVEL 9.4 MG/DL (8.8-10.2); CARBON DIOXIDE LEVEL 32 MEQ/L (21-32); CHLORIDE LEVEL 88 MEQ/L (98-107); CK-MB VALUE MASS 1.9 NG/ML (<3.6); CPK CREATINE PHOSPHOKINASE 64 U/L (39-308); CREATININE FOR GFR 1.19 MG/DL (0.70-1.30); ETHYL ALCOHOL (ETHANOL) < 0.003 % (0.000-0.010); GLOMERULAR FILTRATION RATE > 60.0 (>42); GLUCOSE, FASTING 99 MG/DL (70-100); MB/CK RELATIVE INDEX 2.97 (< OR =4); POTASSIUM SERUM 3.2 MEQ/L (3.5-5.1); SALICYLATE LEVEL < 1.7 MG/DL (5.0-30.0); SODIUM LEVEL 129 MEQ/L (136-145); TOTAL PROTEIN 6.9 GM/DL (6.4-8.2); TROPONIN I < 0.02 NG/ML (< 0.10)
[2021-01-16 13:03] LABS: OSMOLALITY SERUM 266 MOSM/KG (280-301)
[2021-01-16] MEDS ORDERED: POTASSIUM CHLORIDE 10 MEQ SR TABLET PO ONE (14:45)
[2021-01-16 16:20] LABS: AMPHETAMINES LEVEL URINE NEGATIVE (NEGATIVE); BARBITURATES URINE NEGATIVE (NEGATIVE); BENZODIAZEPINES URINE NEGATIVE (NEGATIVE); CANNABINOIDS URINE NEGATIVE (NEGATIVE); COCAINE METABOLITE URINE NEGATIVE (NEGATIVE); METHADONE URINE NEGATIVE (NEGATIVE); OPIATES URINE NEGATIVE (NEGATIVE); PHENCYCLIDINE URINE NEGATIVE (NEGATIVE)
[2021-01-16] MEDS ORDERED: CRES40TA PO (16:55)
[2021-01-16] MEDS ORDERED: D31000TA2 PO (16:55)
[2021-01-16] MEDS ORDERED: TRIA37.5 PO (16:55)
--- NOTE | 2021-01-16 16:55 | ECGEPIP ---
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
--- OUTSIDE RECORDS SUMMARY | 2021-01-16 16:59 | CCD ---
Author Author [facility] Organization [facility] Address Unknown Phone Unavailable Care Team Providers Care Tool And Die Maker/Designer Name Role Phone PEETS, Karen ARTHUR MD [...] is protected by Article 27-F of the [facility] Public Health law. If you continue you may have access to information: Regarding HIV / AIDS; Provided by facilities licensed or operated by the [facility] Office of Mental Health; or Provided by the [facility] Office for People With Developmental Disabilities. If such information is present, then the following [facility] mandated warning applies: This information has [...] law may result in a fine or usp sentence or both. A general authorization for the release of medical or other information is NOT sufficient authorization for further disc losure. Encounters Encounter Providers Location Date Indications Data Source(s ) Outpatient Referrer: SANDHYA FRIED MD 02/17/2020 06:00:00 AM EDT [facility] Outpatient Referrer: SANDHYA FRIED MD 02/13/2020 09:59:00 PM EDT [facility] Outpatient Referrer: SANDHYA FRIED MD 01/31/2020 12:35:00 PM EDT [facility] Medications Medication Brand Name Start [...] may Policy May Plan Information 'S ADMINISTRATION [id number] SP [id number] MEDICARE [id number] SP [id number] W68 [facility] OPTUM [id number] SP [id number] OPTUM VA O [id number] S [id number] WEST O [id number] S [id number] MEDICARE C [id number] S [id number] W68 VA/136E O [id number] S [id number] MEDICARE [id number] SP [id number] MEDICARE [id number] SP [id number] [facility] [id number] SP [id number] MEDICARE C [id number] S [id number] A MEDICARE [id number] SP [id number] A SELF PAY SP
[2021-01-16 17:13] LABS: RSV AMPLIFICATION NEGATIVE (NEGATIVE)
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
[2021-01-16] MEDS: DOCUSATE SODIUM 100MG CAPSULE PO SCH (21:00)
[2021-01-16 22:00] VITALS: BP 136/68
[2021-01-17 05:59] LABS: BASO # 0.1 10^3/uL (0.0-0.2); BASO % 0.9 % (0.0-1.0); EOS # 0.1 10^3/uL (0.0-0.5); EOS % 1.2 % (0.0-3.0); HEMATOCRIT 33.9 % (42.0-52.0); HEMOGLOBIN 12.2 g/dl (13.5-17.5); LYMPH # 1.1 10^3/uL (1.5-5.0); LYMPH % 13.7 % (24.0-44.0); MEAN CORPUSCULAR HEMOGLOBIN 38.1 pg (27.0-33.0); MEAN CORPUSCULAR VOLUME 105.9 fl (80.0-96.0); MONO % 12.6 % (2.0-8.0); NEUTROPHILS # 5.8 10^3/uL (1.5-8.5); NEUTROPHILS % 70.9 % (36.0-66.0); PLATELET COUNT, AUTOMATED 259 10^3/uL (150-450); WHITE BLOOD COUNT 8.2 10^3/uL (4.0-10.0)
[2021-01-17 06:00] VITALS: BP 141/64
[2021-01-17 06:25] LABS: BLOOD UREA NITROGEN 13 MG/DL (7-18); CALCIUM LEVEL 8.7 MG/DL (8.8-10.2); CARBON DIOXIDE LEVEL 31 MEQ/L (21-32); CHLORIDE LEVEL 92 MEQ/L (98-107); CREATININE FOR GFR 1.19 MG/DL (0.70-1.30); GLOMERULAR FILTRATION RATE > 60.0 (>42); GLUCOSE, FASTING 102 MG/DL (70-100); POTASSIUM SERUM 3.7 MEQ/L (3.5-5.1); SODIUM LEVEL 132 MEQ/L (136-145)
[2021-01-17] MEDS: OMEPRAZOLE 20 MG CAP PO SCH (08:27)
[2021-01-17] MEDS: VITAMIN D 1,000 INTERNATIONAL UNITS TABLET PO SCH (08:27)
[2021-01-17] MEDS: MONTELUKAST 10 MG TAB PO SCH (08:27)
[2021-01-17] MEDS: ROSUVASTATIN 10 MG TAB (CRESTOR) PO SCH (08:27)
[2021-01-17] MEDS: DOCUSATE SODIUM 100MG CAPSULE PO SCH ×2 (08:27→20:03)
[2021-01-17] MEDS: ENOXAPARIN 40MG/0.4ML SYRINGE (J1650 PER 10MG) SC SCH (08:27)
--- NOTE | 2021-01-17 10:55 | IPNPDOC ---
Subjective Date Seen The patient was seen on 01/17/21. Subjective Chief Complaint/HPI Today patient did not know why he was here. He did not recognize me from yesterday. When i reintroduced myself he said he never met me before. He knew it was a hospital but not the name or floor. Knew he was in [place]. When i wanted to ask him some more questions he got upset and agitated "Why are you asking me all these questions". " I have been released" "Get out of my face". Objective Physical Examination General Exam: Positive: Alert, No Acute Distress Eye Exam: Positive: PERRLA, Conjunctiva & lids normal, EOMI; Negative: Sclera icteric ENT Exam: Positive: Atraumatic, Mucous membr. moist/pink, Pharynx Normal Neck Exam: Positive: Supple; Negative: JVD, thyromegaly Chest Exam: Positive: Clear to auscultation, Normal air movement Heart Exam: Positive: Rate Normal, Regular Rhythm, Normal S1, Normal S2; Negative: Murmurs, Rubs Abdomen Exam: Positive: Normal bowel sounds, Soft; Negative: Tenderness, Hepatospenomegaly Extremity Exam: Positive: Normal pulses; Negative: Clubbing, Cyanosis, Edema Skin Exam: Positive: Nl turgor and temperature; Negative: Breakdown, Lesion Neuro Exam: Positive: Normal Gait, Normal Speech, Strength at 5/5 X4 ext, Normal Tone, Sensation Intact Psych Exam: Positive: Other (memory poor, oriented x 2) Assessment /Plan Assessment 80 year old male lives alone with Dementia which has been getting worse over the past 1 to 2 years was brought in by police who was called by patient's sone when Pateint threatened to kill himself by a shot in his head or by laying down on snow bank till he freezes. Patient has PMH of Asthma, GERD, depression, back pain. He denied any suicidal thoughts or ideas to me. 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 CT head: Generalized volume loss and small vessel changes. No acute intracranial abnormality He scored a 18 in his MMSE on 01/16/21 MACHINE BANDER AND CELLOPHANER eval for cognition shows moderate dementia. Family cannot provide the required care for this patient will need placement. Asthma no issues at present continue Singulair albuterol prn GERD PPI HLD statin Hypokalemia and hyponatremia due to diuretics which is held. potassium replaced. Plan/VTE VTE Prophylaxis Ordered?: Yes VS, I&O, 24H, Fishbone Vital Signs/I&O Vital Signs Date Time Temp Pulse Resp B/P (MAP) Pulse Ox O2 Delivery O2 Flow Rate FiO2 01/17/21 06:00 97.4 66 18 141/64 (89) 99 Room Air I&O- Last 24 Hours up to 6 AM 01/17/21 06:00 Intake Total 300 ml Output Total 120 ml Balance 180 ml Laboratory Data 24H LABS Laboratory Tests 2 01/16/21 12:05: Immature Granulocyte % (Auto) 0.8, Neutrophils (%) (Auto) 67.0H, Lymphocytes (%) (Auto) 16.4L, Monocytes (%) (Auto) 13.1H, Eosinophils (%) (Auto) 1.6, Basophils (%) (Auto) 1.1H, Neutrophils # (Auto) 4.3, Lymphocytes # (Auto) 1.0L, Monocytes # (Auto) 0.8, Eosinophils # (Auto) 0.1, Basophils # (Auto) 0.1, Nucleated Red Blood Cells % (auto) 0.0, Anion Gap 9, Glomerular Filtration Rate > 60.0, Osmolality 266L, Lactic Acid Level 1.7, Calcium Level 9.4, Total Bilirubin 1.1H, Direct Bilirubin 0.3H, Aspartate Amino Transf (AST/SGOT) 59H, Alanine Aminotransferase (ALT/SGPT) 63, Alkaline Phosphatase 105, Ammonia < 10, Total Creatine Kinase 64, Creatine Kinase MB 1.9, Creatine Kinase MB Relative Index 2.97, Troponin I < 0.02, Total Protein 6.9, Albumin 3.7, Albumin/Globulin Ratio 1.2, Thyroid Stimulating Hormone (TSH) 2.560, Salicylates Level < 1.7L, Acetaminophen Level < 2.0L, Ethyl Alcohol Level < 0.003 01/16/21 15:29: Urine Color JAM, Urine Appearance HAZY, Urine pH 5.0, Urine Specific [place] 1.020, Urine Protein 1+H, Urine Glucose (UA) NEGATIVE, Urine Ketones TRACEH, Urine Blood NEGATIVE, Urine Nitrite NEGATIVE, Urine Bilirubin 1+H, Urine Urobilinogen 0.2, Urine Leukocyte Esterase NEGATIVE, Urine WBC (Auto) 3, Urine RBC (Auto) 1, Urine Hyaline Casts (Auto) 12, Urine Bacteria (Auto) NEGATIVE, Urine Squamous Epithelial Cells 0, Urine Mucus (Auto) LARGE, Urine Sperm (Auto) , Urine Opiates Screen NEGATIVE, Urine Methadone Screen NEGATIVE, Urine Barbiturates Screen NEGATIVE, Urine Phencyclidine Screen NEGATIVE, Urine Amphetamines Screen NEGATIVE, Urine Benzodiazepines Screen NEGATIVE, Urine Cocaine Metabolite Screen NEGATIVE, Urine Cannabinoids Screen NEGATIVE 01/16/21 16:27: Coronavirus (COVID-19)(PCR) NEGATIVE, Influenza Type A (RT-PCR) NEGATIVE, Infl uenza Type B (RT-PCR) NEGATIVE, Respiratory Syncytial Virus (PCR) NEGATIVE 01/17/21 05:26: Immature Granulocyte % (Auto) 0.7, Neutrophils (%) (Auto) 70.9H, Lymphocytes (%) (Auto) 13.7L, Monocytes (%) (Auto) 12.6H, Eosinophils (%) (Auto) 1.2, Basophils (%) (Auto) 0.9, Neutrophils # (Auto) 5.8, Lymphocytes # (Auto) 1.1L, Monocytes # (Auto) 1.0H, Eosinophils # (Auto) 0.1, Basophils # (Auto) 0.1, Nucleated Red Blood Cells % (auto) 0.0, Anion Gap 9, Glomerular Filtration Rate > 60.0, Calcium Level 8.7L CBC/BMP Laboratory Tests 01/16/21 12:05 01/17/21 05:26 PRATIBHA MOROCHO MD Jan 17, 2021 10:55
[2021-01-17] MEDS ORDERED: OLANZapine INTRAMUSCULAR 10MG VIAL IM ONE (13:25)
[2021-01-17 14:00] VITALS: BP 84/68
[2021-01-17] MEDS: LORazepam 2 MG/ML VIAL IM PRN (14:20)
[2021-01-17] MEDS: QUEtiapine FUMARATE 12.5 MG HALF-TAB PO SCH ×2 (19:04→20:03)
[2021-01-17] MEDS ORDERED: OLANZapine INTRAMUSCULAR 10MG VIAL IM PRN (21:00)
[2021-01-17 22:00] VITALS: BP 110/67
[2021-01-18 06:00] VITALS: BP 101/64
[2021-01-18 06:13] LABS: BASO # 0.1 10^3/uL (0.0-0.2); BASO % 0.8 % (0.0-1.0); EOS # 0.2 10^3/uL (0.0-0.5); EOS % 2.6 % (0.0-3.0); HEMOGLOBIN 12.1 g/dl (13.5-17.5); LYMPH # 1.1 10^3/uL (1.5-5.0); LYMPH % 17.3 % (24.0-44.0); MEAN CORPUSCULAR HEMOGLOBIN 37.8 pg (27.0-33.0); MEAN CORPUSCULAR HGB CONC 35.6 g/dl (32.0-36.5); MEAN CORPUSCULAR VOLUME 106.3 fl (80.0-96.0); MONO # 0.8 10^3/uL (0.0-0.8); MONO % 12.6 % (2.0-8.0); NEUTROPHILS # 4.2 10^3/uL (1.5-8.5); NEUTROPHILS % 66.2 % (36.0-66.0); PLATELET COUNT, AUTOMATED 253 10^3/uL (150-450); WHITE BLOOD COUNT 6.3 10^3/uL (4.0-10.0)
[2021-01-18 06:31] LABS: BLOOD UREA NITROGEN 11 MG/DL (7-18); CALCIUM LEVEL 8.7 MG/DL (8.8-10.2); CARBON DIOXIDE LEVEL 32 MEQ/L (21-32); CHLORIDE LEVEL 95 MEQ/L (98-107); CREATININE FOR GFR 1.11 MG/DL (0.70-1.30); GLOMERULAR FILTRATION RATE > 60.0 (>42); GLUCOSE, FASTING 96 MG/DL (70-100); SODIUM LEVEL 133 MEQ/L (136-145)
[2021-01-18] MEDS ORDERED: POTASSIUM CHLORIDE 10 MEQ SR TABLET PO ONE (06:55)
[2021-01-18] MEDS: DOCUSATE SODIUM 100MG CAPSULE PO SCH ×2 (08:00→20:22)
[2021-01-18] MEDS: OMEPRAZOLE 20 MG CAP PO SCH (08:00)
[2021-01-18] MEDS: VITAMIN D 1,000 INTERNATIONAL UNITS TABLET PO SCH (08:00)
[2021-01-18] MEDS: QUEtiapine FUMARATE 12.5 MG HALF-TAB PO SCH ×2 (08:00→20:22)
[2021-01-18] MEDS: ROSUVASTATIN 10 MG TAB (CRESTOR) PO SCH (08:01)
[2021-01-18] MEDS: ENOXAPARIN 40MG/0.4ML SYRINGE (J1650 PER 10MG) SC SCH (08:01)
[2021-01-18] MEDS: MONTELUKAST 10 MG TAB PO SCH (08:01)
--- NOTE | 2021-01-18 08:43 | IPNPDOC ---
Subjective Date Seen The patient was seen on 01/18/21. Subjective Chief Complaint/HPI Yesterday afternoon he had become agitated and was trying to walk out. He was pacing in the corridors. he need im ativan and olanzepine to calm him down. Today he is more calm and pleasant having his breakfast. Objective Physical Examination General Exam: Positive: Alert, No Acute Distress Eye Exam: Positive: PERRLA, Conjunctiva & lids normal, EOMI; Negative: Sclera icteric ENT Exam: Positive: Atraumatic, Mucous membr. moist/pink, Pharynx Normal Neck Exam: Positive: Supple; Negative: JVD, thyromegaly Chest Exam: Positive: Clear to auscultation, Normal air movement Heart Exam: Positive: Rate Normal, Regular Rhythm, Normal S1, Normal S2; Negative: Murmurs, Rubs Abdomen Exam: Positive: Normal bowel sounds, Soft; Negative: Tenderness, Hepatospenomegaly Extremity Exam: Positive: Normal pulses; Negative: Clubbing, Cyanosis, Edema Skin Exam: Positive: Nl turgor and temperature; Negative: Breakdown, Lesion Neuro Exam: Positive: Normal Gait, Normal Speech, Strength at 5/5 X4 ext, Nor mal Tone, Sensation Intact Psych Exam: Positive: Other (memory poor, oriented x 2) Assessment /Plan Assessment 80 year old male lives alone with Dementia which has been getting worse over the past 1 to 2 years was brought in by police who was called by patient's sone when Patient threatened to kill himself by a shot in his head or by laying down on the snow bank till he freezes. Patient has PMH of Asthma, GERD, depression, back pain. He has moderate dementia and will need snf placement. 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 CT head: Generalized volume loss and small vessel changes. No acute intracranial abnormality He scored a 18 in his MMSE on 01/16/21 started on seroquel scheduled Does have ativan im and olanzapine im available for PRN use. Asthma no issues at present continue Singulair albuterol prn GERD PPI HLD statin Hypokalemia and hyponatremia due to diuretics which is held. potassium replaced. Plan/VTE VTE Prophylaxis Ordered?: Yes VS, I&O, 24H, Fishbone Vital Signs/I&O Vital Signs Date Time Temp Pulse Resp B/P (MAP) Pulse Ox O2 Delivery O2 Flow Rate FiO2 01/18/21 06:00 98.0 66 18 101/64 (76) 97 01/17/21 14:00 Room Air I&O- Last 24 Hours up to 6 AM 01/18/21 06:00 Intake Total 1260 ml Output Total 0 ml Balance 1260 ml Laboratory Data 24H LABS Laboratory Tests 2 01/18/21 05:29: Immature Granulocyte % (Auto) 0.5, Neutrophils (%) (Auto) 66.2H, Lymphocytes (%) (Auto) 17.3L, Monocytes (%) (Auto) 12.6H, Eosinophils (%) (Auto) 2.6, Basophils (%) (Auto) 0.8, Neutrophils # (Auto) 4.2, Lymphocytes # (Auto) 1.1L, Monocytes # (Auto) 0.8, Eosinophils # (Auto) 0.2, Basophils # (Auto) 0.1, Nucleated Red Blood Cells % (auto) 0.0, Anion Gap 6L, Glomerular Filtration Rate > 60.0, Calcium Level 8.7L CBC/BMP Laboratory Tests 01/18/21 05:29 PRATIBHA MOROCHO MD Jan 18, 2021 08:43
[2021-01-18] MEDS: LORazepam 2 MG/ML VIAL IM PRN (11:42)
[2021-01-18 14:00] VITALS: BP 119/79
[2021-01-18 22:00] VITALS: BP 120/83
[2021-01-18] MEDS: ALBUTEROL 90 MCG/ACT 8GM HFA INHALER INH PRN (22:30)
[2021-01-19 06:01] LABS: BASO # 0.1 10^3/uL (0.0-0.2); EOS # 0.2 10^3/uL (0.0-0.5); EOS % 3.1 % (0.0-3.0); HEMATOCRIT 36.4 % (42.0-52.0); HEMOGLOBIN 12.3 g/dl (13.5-17.5); LYMPH # 1.2 10^3/uL (1.5-5.0); LYMPH % 20.5 % (24.0-44.0); MEAN CORPUSCULAR HEMOGLOBIN 36.6 pg (27.0-33.0); MEAN CORPUSCULAR HGB CONC 33.8 g/dl (32.0-36.5); MEAN CORPUSCULAR VOLUME 108.3 fl (80.0-96.0); MONO # 0.8 10^3/uL (0.0-0.8); MONO % 12.6 % (2.0-8.0); NEUTROPHILS # 3.8 10^3/uL (1.5-8.5); NEUTROPHILS % 62.3 % (36.0-66.0); PLATELET COUNT, AUTOMATED 266 10^3/uL (150-450); RED BLOOD COUNT 3.36 10^6/uL (4.30-6.10); WHITE BLOOD COUNT 6.1 10^3/uL (4.0-10.0)
[2021-01-19 06:19] LABS: BLOOD UREA NITROGEN 11 MG/DL (7-18); CALCIUM LEVEL 8.9 MG/DL (8.8-10.2); CARBON DIOXIDE LEVEL 32 MEQ/L (21-32); CHLORIDE LEVEL 97 MEQ/L (98-107); CREATININE FOR GFR 1.23 MG/DL (0.70-1.30); GLOMERULAR FILTRATION RATE > 60.0 (>42); GLUCOSE, FASTING 93 MG/DL (70-100); POTASSIUM SERUM 3.4 MEQ/L (3.5-5.1); SODIUM LEVEL 135 MEQ/L (136-145)
[2021-01-19] MEDS ORDERED: POTASSIUM CHLORIDE 10 MEQ SR TABLET PO ONE (07:50)
[2021-01-19] MEDS: QUEtiapine FUMARATE 12.5 MG HALF-TAB PO SCH ×2 (08:58→20:14)
[2021-01-19] MEDS: ROSUVASTATIN 10 MG TAB (CRESTOR) PO SCH (08:58)
[2021-01-19] MEDS: OMEPRAZOLE 20 MG CAP PO SCH (08:59)
[2021-01-19] MEDS: DOCUSATE SODIUM 100MG CAPSULE PO SCH ×2 (08:59→20:14)
[2021-01-19] MEDS: MONTELUKAST 10 MG TAB PO SCH (08:59)
[2021-01-19] MEDS: VITAMIN D 1,000 INTERNATIONAL UNITS TABLET PO SCH (08:59)
[2021-01-19] MEDS: ENOXAPARIN 40MG/0.4ML SYRINGE (J1650 PER 10MG) SC SCH (08:59)
[2021-01-19] MEDS ORDERED: LORazepam 2 MG/ML VIAL As Ordered ONE (12:57)
[2021-01-19] MEDS: LORazepam 2 MG/ML VIAL IM PRN (13:16)
[2021-01-19 14:00] VITALS: BP 128/74
[2021-01-19 22:00] VITALS: BP 122/85
[2021-01-20 06:00] VITALS: BP 138/80
[2021-01-20] MEDS: OMEPRAZOLE 20 MG CAP PO SCH (09:31)
[2021-01-20] MEDS: DOCUSATE SODIUM 100MG CAPSULE PO SCH ×2 (09:31→19:47)
[2021-01-20] MEDS: MONTELUKAST 10 MG TAB PO SCH (09:31)
[2021-01-20] MEDS: VITAMIN D 1,000 INTERNATIONAL UNITS TABLET PO SCH (09:31)
[2021-01-20] MEDS: QUEtiapine FUMARATE 12.5 MG HALF-TAB PO SCH ×2 (09:31→19:47)
[2021-01-20] MEDS: ROSUVASTATIN 10 MG TAB (CRESTOR) PO SCH (09:32)
[2021-01-20] MEDS: ENOXAPARIN 40MG/0.4ML SYRINGE (J1650 PER 10MG) SC SCH (09:32)
[2021-01-20] MEDS: ALBUTEROL 90 MCG/ACT 8GM HFA INHALER INH PRN ×2 (09:49→19:36)
[2021-01-20 14:00] VITALS: BP 87/49
[2021-01-20 17:00] VITALS: BP 122/78
[2021-01-20 22:00] VITALS: BP 105/68
[2021-01-21] MEDS: ALBUTEROL 90 MCG/ACT 8GM HFA INHALER INH PRN (03:55)
[2021-01-21 06:00] VITALS: BP 110/65
[2021-01-21] MEDS: DOCUSATE SODIUM 100MG CAPSULE PO SCH ×2 (08:23→20:58)
[2021-01-21] MEDS: MONTELUKAST 10 MG TAB PO SCH (08:23)
[2021-01-21] MEDS: OMEPRAZOLE 20 MG CAP PO SCH (08:23)
[2021-01-21] MEDS: VITAMIN D 1,000 INTERNATIONAL UNITS TABLET PO SCH (08:23)
[2021-01-21] MEDS: QUEtiapine FUMARATE 12.5 MG HALF-TAB PO SCH ×2 (08:23→20:57)
[2021-01-21] MEDS: ROSUVASTATIN 10 MG TAB (CRESTOR) PO SCH (08:23)
[2021-01-21] MEDS: ENOXAPARIN 40MG/0.4ML SYRINGE (J1650 PER 10MG) SC SCH (08:24)
[2021-01-21] MEDS: OFLOXACIN 0.3 % (OCUFLOX) OPTH SOL 5ML OU SCH ×4 (11:23→20:58)
[2021-01-21] MEDS: LORazepam 0.5 MG TAB PO PRN (14:38)
[2021-01-21] MEDS: ALBUTEROL SULFATE 2.5 MG/0.5 ML INH NEB SOLN NEB PRN (17:04)
[2021-01-22] MEDS: ALBUTEROL SULFATE 2.5 MG/0.5 ML INH NEB SOLN NEB PRN ×3 (00:28→16:55)
[2021-01-22 06:00] VITALS: BP 110/76
[2021-01-22] MEDS: DOCUSATE SODIUM 100MG CAPSULE PO SCH ×2 (08:31→20:17)
[2021-01-22] MEDS: VITAMIN D 1,000 INTERNATIONAL UNITS TABLET PO SCH (08:31)
[2021-01-22] MEDS: OMEPRAZOLE 20 MG CAP PO SCH (08:31)
[2021-01-22] MEDS: QUEtiapine FUMARATE 12.5 MG HALF-TAB PO SCH ×2 (08:31→20:18)
[2021-01-22] MEDS: ROSUVASTATIN 10 MG TAB (CRESTOR) PO SCH (08:31)
[2021-01-22] MEDS: LORazepam 0.5 MG TAB PO PRN ×2 (08:32→16:55)
[2021-01-22] MEDS: ENOXAPARIN 40MG/0.4ML SYRINGE (J1650 PER 10MG) SC SCH (08:32)
[2021-01-22] MEDS: MONTELUKAST 10 MG TAB PO SCH (08:32)
[2021-01-22] MEDS: OFLOXACIN 0.3 % (OCUFLOX) OPTH SOL 5ML OU SCH ×4 (08:32→20:20)
[2021-01-22 08:38] LABS: HEMATOCRIT 36.6 % (42.0-52.0); HEMOGLOBIN 12.7 g/dl (13.5-17.5); MEAN CORPUSCULAR HEMOGLOBIN 37.6 pg (27.0-33.0); MEAN CORPUSCULAR HGB CONC 34.7 g/dl (32.0-36.5); MEAN CORPUSCULAR VOLUME 108.3 fl (80.0-96.0); PLATELET COUNT, AUTOMATED 232 10^3/uL (150-450); RED BLOOD COUNT 3.38 10^6/uL (4.30-6.10); WHITE BLOOD COUNT 5.3 10^3/uL (4.0-10.0)
[2021-01-22 09:07] LABS: BLOOD UREA NITROGEN 9 MG/DL (7-18); CARBON DIOXIDE LEVEL 29 MEQ/L (21-32); CHLORIDE LEVEL 101 MEQ/L (98-107); CREATININE FOR GFR 1.13 MG/DL (0.70-1.30); GLOMERULAR FILTRATION RATE > 60.0 (>42); GLUCOSE, FASTING 114 MG/DL (70-100); POTASSIUM SERUM 4.2 MEQ/L (3.5-5.1); SODIUM LEVEL 136 MEQ/L (136-145)
[2021-01-22 15:10] VITALS: BP 144/80
[2021-01-23 06:00] VITALS: BP 123/85
[2021-01-23] MEDS: OMEPRAZOLE 20 MG CAP PO SCH (08:22)
[2021-01-23] MEDS: ENOXAPARIN 40MG/0.4ML SYRINGE (J1650 PER 10MG) SC SCH (08:23)
[2021-01-23] MEDS: DOCUSATE SODIUM 100MG CAPSULE PO SCH ×2 (08:23→20:00)
[2021-01-23] MEDS: LORazepam 0.5 MG TAB PO PRN ×3 (08:23→19:20)
[2021-01-23] MEDS: MONTELUKAST 10 MG TAB PO SCH (08:23)
[2021-01-23] MEDS: VITAMIN D 1,000 INTERNATIONAL UNITS TABLET PO SCH (08:23)
[2021-01-23] MEDS: QUEtiapine FUMARATE 12.5 MG HALF-TAB PO SCH ×2 (08:23→19:19)
[2021-01-23] MEDS: OFLOXACIN 0.3 % (OCUFLOX) OPTH SOL 5ML OU SCH ×4 (08:23→20:01)
[2021-01-23] MEDS: ROSUVASTATIN 10 MG TAB (CRESTOR) PO SCH (08:23)
[2021-01-23] MEDS: ALBUTEROL SULFATE 2.5 MG/0.5 ML INH NEB SOLN NEB PRN ×2 (13:00→18:57)
--- NOTE | 2021-01-23 19:39 | IPNPDOC ---
Text Note Date of Service The patient was seen on 01/23/21. NOTE INTERIM NOTE: A code 25 was called on the patient at approximately 1905, as he attempted to forcefully leave the floor. Pt does carry a history of advanced dementia. Pt was able to be successfully redirected back to his room. At that time, pt indicated that he was "tired of being in the hospital and wished to return home ". Dr. Reina spoke in detail with the pt regarding his medical necessity to remain in the hospital. Pt's son was contacted in the room and re-iterated that patient would not be able to return home 2/2 to lack of care. As mentioned in patient's other notes, he does live independently and has made a number of SI threats in the past. Through patient, and goal-directed conversation, the situation was thoroughly de-escalated. Pt was agreeable to remain in the hospital overnight. He was given his scheduled Seroquel and PRN Ativan which he took without issue. VS,Fishbone, I+O VS, Fishbone, I+O Vital Signs Date Time Temp Pulse Resp B/P (MAP) Pulse Ox O2 Delivery O2 Flow Rate FiO2 01/23/21 06:00 97.2 63 17 123/85 (98) 98 Room Air I&O- Last 24 Hours up to 6 AM 01/23/21 06:00 Intake Total 690 ml Output Total 0 ml Balance 690 ml GME ATTESTATION GME ATTESTATION My faculty preceptor for this patient encounter was physically present during the encounter and was fully available. All aspects of the patient interview, examination, medical decision making process, and medical care plan development were reviewed and approved by the faculty preceptor. The faculty preceptor is aware and concurs with the plan as stated in the body of this note and will attest to such by his/her cosignature. ATTENDING NOTE I have independently interviewed and examined the patient at the bedside with my resident physician and agree with the physical findings and management plan as documented above.The patient's questions and concerns have been addressed, and the patient has been advised to discuss his case with his morning physician tomorrow. ANIA DEUTSCH DO Jan 23, 2021 19:39 JIMMY REINA MD Jan 23, 2021 21:02
[2021-01-24 06:00] VITALS: BP 123/83
[2021-01-24] MEDS: ALBUTEROL SULFATE 2.5 MG/0.5 ML INH NEB SOLN NEB PRN (07:04)
[2021-01-24] MEDS: LORazepam 0.5 MG TAB PO PRN (10:12)
[2021-01-24] MEDS: MONTELUKAST 10 MG TAB PO SCH (10:12)
[2021-01-24] MEDS: OMEPRAZOLE 20 MG CAP PO SCH (10:12)
[2021-01-24] MEDS: VITAMIN D 1,000 INTERNATIONAL UNITS TABLET PO SCH (10:12)
[2021-01-24] MEDS: QUEtiapine FUMARATE 12.5 MG HALF-TAB PO SCH ×2 (10:12→20:13)
[2021-01-24] MEDS: DOCUSATE SODIUM 100MG CAPSULE PO SCH ×2 (10:12→20:13)
[2021-01-24] MEDS: OFLOXACIN 0.3 % (OCUFLOX) OPTH SOL 5ML OU SCH ×4 (10:12→20:13)
[2021-01-24] MEDS: ROSUVASTATIN 10 MG TAB (CRESTOR) PO SCH (10:13)
[2021-01-24] MEDS: ENOXAPARIN 40MG/0.4ML SYRINGE (J1650 PER 10MG) SC SCH (10:13)
[2021-01-24 13:57] VITALS: BP 118/60
[2021-01-24 14:54] LABS: HEMATOCRIT 35.7 % (42.0-52.0); HEMOGLOBIN 12.2 g/dl (13.5-17.5); MEAN CORPUSCULAR HEMOGLOBIN 37.3 pg (27.0-33.0); MEAN CORPUSCULAR HGB CONC 34.2 g/dl (32.0-36.5); MEAN CORPUSCULAR VOLUME 109.2 fl (80.0-96.0); PLATELET COUNT, AUTOMATED 252 10^3/uL (150-450); RED BLOOD COUNT 3.27 10^6/uL (4.30-6.10); WHITE BLOOD COUNT 5.6 10^3/uL (4.0-10.0)
[2021-01-24 15:40] LABS: ALBUMIN 3.1 GM/DL (3.2-5.2); ALT/SGPT 40 U/L (12-78); BILIRUBIN,TOTAL 0.3 MG/DL (0.2-1.0); BLOOD UREA NITROGEN 11 MG/DL (7-18); CALCIUM LEVEL 8.6 MG/DL (8.8-10.2); CARBON DIOXIDE LEVEL 29 MEQ/L (21-32); CHLORIDE LEVEL 102 MEQ/L (98-107); CPK CREATINE PHOSPHOKINASE 54 U/L (39-308); CREATININE FOR GFR 1.02 MG/DL (0.70-1.30); GLOMERULAR FILTRATION RATE > 60.0 (>42); GLUCOSE, FASTING 104 MG/DL (70-100); MB/CK RELATIVE INDEX 1.85 (< OR =4); POTASSIUM SERUM 3.3 MEQ/L (3.5-5.1); SODIUM LEVEL 137 MEQ/L (136-145); TROPONIN I < 0.02 NG/ML (< 0.10)
[2021-01-25] MEDS: LORazepam 0.5 MG TAB PO PRN ×2 (03:45→20:25)
[2021-01-25 06:00] VITALS: BP 118/83
[2021-01-25] MEDS: QUEtiapine FUMARATE 12.5 MG HALF-TAB PO SCH (08:44)
[2021-01-25] MEDS: MONTELUKAST 10 MG TAB PO SCH (08:44)
[2021-01-25] MEDS: ROSUVASTATIN 10 MG TAB (CRESTOR) PO SCH (08:44)
[2021-01-25] MEDS: ENOXAPARIN 40MG/0.4ML SYRINGE (J1650 PER 10MG) SC SCH (08:44)
[2021-01-25] MEDS: OFLOXACIN 0.3 % (OCUFLOX) OPTH SOL 5ML OU SCH ×4 (08:44→20:38)
[2021-01-25] MEDS: VITAMIN D 1,000 INTERNATIONAL UNITS TABLET PO SCH (08:44)
[2021-01-25] MEDS: OMEPRAZOLE 20 MG CAP PO SCH (08:44)
[2021-01-25] MEDS: DOCUSATE SODIUM 100MG CAPSULE PO SCH ×2 (08:44→20:25)
[2021-01-25 09:43] LABS: HEMATOCRIT 34.9 % (42.0-52.0); HEMOGLOBIN 11.9 g/dl (13.5-17.5); MEAN CORPUSCULAR HEMOGLOBIN 36.8 pg (27.0-33.0); MEAN CORPUSCULAR HGB CONC 34.1 g/dl (32.0-36.5); PLATELET COUNT, AUTOMATED 240 10^3/uL (150-450); RED BLOOD COUNT 3.23 10^6/uL (4.30-6.10); WHITE BLOOD COUNT 5.7 10^3/uL (4.0-10.0)
--- NOTE | 2021-01-25 10:08 | IPNPDOC ---
Text Note Date of Service The patient was seen on 01/25/21. NOTE Subjective: Patient seen and examined at bedside. No acute overnight events reported. Was noted that he has been requiring his when necessary Ativan due to agitation. This morning patient voices no medical complaints. Objective: General: NAD, sitting comfortably in chair eating breakfast, in good spirits HEENT: NC/AT, EOMI Lungs: CTA B/L Heart: +S1S2, RRR Abd: soft, NT, +BS Ext: no edema A/P: 80 yo male brought in by police, after son called police regarding concerns over suicidal ideation. Patient threatened to kill himself by gunshot or laying down on the snow bank till he freezes. Patient has PMHx of Asthma, GERD, dementia, depression, back pain. # Dementia with intermittent behaviors - started on seroquel scheduled - pm dose adjusted 25 mg qhs, 12.5 qam - using PRN ativan as well #Asthma - no issues at present - continue Singulair - albuterol prn #GERD - PPI #HLD - statin #Hypokalemia and hyponatremia - resolved - replete as needed VS,Fishbone, I+O VS, Fishbone, I+O Laboratory Tests 01/24/21 14:16 01/25/21 09:24 Vital Signs Date Time Temp Pulse Resp B/P (MAP) Pulse Ox O2 Delivery O2 Flow Rate FiO2 01/25/21 06:00 97.6 87 17 118/83 (95) 96 Room Air I&O- Last 24 Hours up to 6 AM 01/25/21 06:00 Intake Total 2275 ml Output Total 0 ml Balance 2275 ml SIRISHA LUBIN MD Jan 25, 2021 10:08
[2021-01-25 10:12] LABS: BLOOD UREA NITROGEN 7 MG/DL (7-18); CALCIUM LEVEL 8.3 MG/DL (8.8-10.2); CARBON DIOXIDE LEVEL 27 MEQ/L (21-32); CHLORIDE LEVEL 103 MEQ/L (98-107); CREATININE FOR GFR 0.97 MG/DL (0.70-1.30); GLOMERULAR FILTRATION RATE > 60.0 (>42); GLUCOSE, FASTING 138 MG/DL (70-100); MAGNESIUM LEVEL 1.4 MG/DL (1.8-2.4); POTASSIUM SERUM 3.4 MEQ/L (3.5-5.1); SODIUM LEVEL 137 MEQ/L (136-145)
[2021-01-25] MEDS: QUEtiapine FUMARATE 25 MG TAB PO SCH (20:25)
[2021-01-25] MEDS: ALBUTEROL SULFATE 2.5 MG/0.5 ML INH NEB SOLN NEB PRN (21:40)
[2021-01-26 06:00] VITALS: BP 138/72
[2021-01-26] MEDS: OFLOXACIN 0.3 % (OCUFLOX) OPTH SOL 5ML OU SCH ×5 (09:00→21:00)
--- NOTE | 2021-01-26 09:10 | ECGEPIP ---
[facility] Test Date: 2021-01-25 Pat Name: JEREMIE ALBA Department: Room: [place] [address] Gender: Male Assistant Sales Director: lennie : 1940 Requested By: SIRISHA Allen Order Number: [id number] Reading MD: Paulina Miner Measurements Intervals [place] Rate: 93 P: 57 MS: 202 QRS: -69 QRSD: 100 T: 105 QT: 380 QTc: 472 Interpretive Statements Sinus rhythm with premature atrial complexes Left axis deviation SIMILAR TO 01/16/21 Electronically Signed on 01-26-2021 9:10:14 EST by Paulina Miner
[2021-01-26] MEDS: VITAMIN D 1,000 INTERNATIONAL UNITS TABLET PO SCH (09:31)
[2021-01-26] MEDS: DOCUSATE SODIUM 100MG CAPSULE PO SCH ×2 (09:31→20:59)
[2021-01-26] MEDS: MONTELUKAST 10 MG TAB PO SCH (09:31)
[2021-01-26] MEDS: QUEtiapine FUMARATE 12.5 MG HALF-TAB PO SCH (09:31)
[2021-01-26] MEDS: ROSUVASTATIN 10 MG TAB (CRESTOR) PO SCH (09:31)
[2021-01-26] MEDS: OMEPRAZOLE 20 MG CAP PO SCH (09:31)
[2021-01-26] MEDS: ENOXAPARIN 40MG/0.4ML SYRINGE (J1650 PER 10MG) SC SCH (09:32)
[2021-01-26] MEDS: ALBUTEROL SULFATE 2.5 MG/0.5 ML INH NEB SOLN NEB PRN ×2 (13:08→18:16)
[2021-01-26 14:00] VITALS: BP 97/69
[2021-01-26] MEDS: QUEtiapine FUMARATE 25 MG TAB PO SCH (20:59)
[2021-01-26 22:07] VITALS: BP 107/64
[2021-01-27 06:00] VITALS: BP 120/76
[2021-01-27] MEDS: ENOXAPARIN 40MG/0.4ML SYRINGE (J1650 PER 10MG) SC SCH ×2 (09:00→09:11)
[2021-01-27] MEDS: VITAMIN D 1,000 INTERNATIONAL UNITS TABLET PO SCH (09:10)
[2021-01-27] MEDS: ROSUVASTATIN 10 MG TAB (CRESTOR) PO SCH (09:10)
[2021-01-27] MEDS: DOCUSATE SODIUM 100MG CAPSULE PO SCH ×2 (09:10→19:45)
[2021-01-27] MEDS: QUEtiapine FUMARATE 12.5 MG HALF-TAB PO SCH (09:10)
[2021-01-27] MEDS: OMEPRAZOLE 20 MG CAP PO SCH (09:10)
[2021-01-27] MEDS: MONTELUKAST 10 MG TAB PO SCH (09:10)
[2021-01-27] MEDS: OFLOXACIN 0.3 % (OCUFLOX) OPTH SOL 5ML OU SCH ×4 (09:11→19:45)
[2021-01-27] MEDS ORDERED: ALBUTEROL 90 MCG/ACT 8GM HFA INHALER INH PRN (09:20)
--- NOTE | 2021-01-27 10:01 | IPNPDOC ---
Text Note Date of Service The patient was seen on 01/27/21. NOTE Subjective: Patient seen and examined at bedside. No acute overnight events reported. This morning patient voices no medical complaints. Objective: General: NAD, sitting comfortably in chair eating breakfast, in good spirits HEENT: NC/AT, EOMI Lungs: CTA B/L Heart: +S1S2, RRR Abd: soft, NT, +BS Ext: no edema A/P: 80 yo male brought in by police, after son called police regarding concerns over suicidal ideation. Patient threatened to kill himself by gunshot or laying down on the snow bank till he freezes. Patient has PMHx of Asthma, GERD, dementia, depression, back pain. # Dementia with intermittent behaviors - started on seroquel scheduled - pm dose adjusted 25 mg qhs, 12.5 qam - Has not needed when necessary Ativan since his Seroquel has been increased #Asthma - no issues at present - continue Singulair, nebs as needed - albuterol prn ordered #GERD - PPI #HLD - statin #Hypokalemia and hyponatremia - resolved - replete as needed VS,Fishbone, I+O VS, Fishbone, I+O Vital Signs Date Time Temp Pulse Resp B/P (MAP) Pulse Ox O2 Delivery O2 Flow Rate FiO2 01/27/21 06:00 97.9 94 17 120/76 (91) 98 Room Air I&O- Last 24 Hours up to 6 AM 01/27/21 06:00 Intake Total 2210 ml Output Total 0 ml Balance 2210 ml SIRISHA LUBIN MD Jan 27, 2021 10:01
[2021-01-27] MEDS: QUEtiapine FUMARATE 25 MG TAB PO SCH (19:45)
[2021-01-28 06:00] VITALS: BP 102/66
[2021-01-28] MEDS: OFLOXACIN 0.3 % (OCUFLOX) OPTH SOL 5ML OU SCH ×5 (09:00→20:28)
[2021-01-28] MEDS: ROSUVASTATIN 10 MG TAB (CRESTOR) PO SCH ×2 (09:00→09:19)
[2021-01-28] MEDS: VITAMIN D 1,000 INTERNATIONAL UNITS TABLET PO SCH ×2 (09:00→09:19)
[2021-01-28] MEDS: DOCUSATE SODIUM 100MG CAPSULE PO SCH ×3 (09:00→20:28)
[2021-01-28] MEDS: QUEtiapine FUMARATE 12.5 MG HALF-TAB PO SCH ×3 (09:00→13:04)
[2021-01-28] MEDS: MONTELUKAST 10 MG TAB PO SCH (09:19)
[2021-01-28] MEDS: OMEPRAZOLE 20 MG CAP PO SCH (09:19)
[2021-01-28] MEDS: ENOXAPARIN 40MG/0.4ML SYRINGE (J1650 PER 10MG) SC SCH (09:19)
[2021-01-28] MEDS: ALBUTEROL SULFATE 2.5 MG/0.5 ML INH NEB SOLN NEB PRN ×2 (13:11→18:54)
[2021-01-28] MEDS: QUEtiapine FUMARATE 25 MG TAB PO SCH (20:28)
[2021-01-29 06:00] VITALS: BP 121/75
[2021-01-29 09:50] LABS: HEMATOCRIT 32.5 % (42.0-52.0); HEMOGLOBIN 10.9 g/dl (13.5-17.5); MEAN CORPUSCULAR HEMOGLOBIN 36.6 pg (27.0-33.0); MEAN CORPUSCULAR HGB CONC 33.5 g/dl (32.0-36.5); MEAN CORPUSCULAR VOLUME 109.1 fl (80.0-96.0); PLATELET COUNT, AUTOMATED 278 10^3/uL (150-450); RED BLOOD COUNT 2.98 10^6/uL (4.30-6.10); WHITE BLOOD COUNT 5.2 10^3/uL (4.0-10.0)
[2021-01-29] MEDS: DOCUSATE SODIUM 100MG CAPSULE PO SCH ×2 (10:00→21:59)
[2021-01-29] MEDS: MONTELUKAST 10 MG TAB PO SCH (10:00)
[2021-01-29] MEDS: ROSUVASTATIN 10 MG TAB (CRESTOR) PO SCH (10:00)
[2021-01-29] MEDS: OMEPRAZOLE 20 MG CAP PO SCH (10:00)
[2021-01-29] MEDS: VITAMIN D 1,000 INTERNATIONAL UNITS TABLET PO SCH (10:00)
[2021-01-29] MEDS: QUEtiapine FUMARATE 12.5 MG HALF-TAB PO SCH (10:00)
[2021-01-29] MEDS: OFLOXACIN 0.3 % (OCUFLOX) OPTH SOL 5ML OU SCH ×4 (10:01→21:59)
[2021-01-29] MEDS: ENOXAPARIN 40MG/0.4ML SYRINGE (J1650 PER 10MG) SC SCH (10:01)
[2021-01-29 10:21] LABS: BLOOD UREA NITROGEN 6 MG/DL (7-18); CALCIUM LEVEL 8.6 MG/DL (8.8-10.2); CARBON DIOXIDE LEVEL 28 MEQ/L (21-32); CHLORIDE LEVEL 107 MEQ/L (98-107); CREATININE FOR GFR 0.93 MG/DL (0.70-1.30); GLOMERULAR FILTRATION RATE > 60.0 (>42); GLUCOSE, FASTING 116 MG/DL (70-100); SODIUM LEVEL 141 MEQ/L (136-145)
[2021-01-29] MEDS: ALBUTEROL SULFATE 2.5 MG/0.5 ML INH NEB SOLN NEB PRN ×2 (15:30→19:19)
[2021-01-29] MEDS: QUEtiapine FUMARATE 25 MG TAB PO SCH (21:59)
[2021-01-30 06:00] VITALS: BP 125/78
[2021-01-30] MEDS: OMEPRAZOLE 20 MG CAP PO SCH (08:53)
[2021-01-30] MEDS: QUEtiapine FUMARATE 12.5 MG HALF-TAB PO SCH (08:53)
[2021-01-30] MEDS: VITAMIN D 1,000 INTERNATIONAL UNITS TABLET PO SCH (08:53)
[2021-01-30] MEDS: ROSUVASTATIN 10 MG TAB (CRESTOR) PO SCH (08:53)
[2021-01-30] MEDS: MONTELUKAST 10 MG TAB PO SCH (08:53)
[2021-01-30] MEDS: DOCUSATE SODIUM 100MG CAPSULE PO SCH ×2 (08:53→20:44)
[2021-01-30] MEDS: ENOXAPARIN 40MG/0.4ML SYRINGE (J1650 PER 10MG) SC SCH (08:54)
[2021-01-30] MEDS: OFLOXACIN 0.3 % (OCUFLOX) OPTH SOL 5ML OU SCH ×5 (08:54→20:44)
[2021-01-30] MEDS: ALBUTEROL SULFATE 2.5 MG/0.5 ML INH NEB SOLN NEB PRN ×3 (09:23→19:32)
[2021-01-30] MEDS: QUEtiapine FUMARATE 25 MG TAB PO SCH (20:44)
[2021-01-31 06:00] VITALS: BP 103/57
[2021-01-31] MEDS: ALBUTEROL SULFATE 2.5 MG/0.5 ML INH NEB SOLN NEB PRN ×3 (06:27→15:21)
[2021-01-31] MEDS: OFLOXACIN 0.3 % (OCUFLOX) OPTH SOL 5ML OU SCH ×5 (09:00→20:02)
[2021-01-31] MEDS: VITAMIN D 1,000 INTERNATIONAL UNITS TABLET PO SCH (10:17)
[2021-01-31] MEDS: ROSUVASTATIN 10 MG TAB (CRESTOR) PO SCH (10:17)
[2021-01-31] MEDS: DOCUSATE SODIUM 100MG CAPSULE PO SCH ×2 (10:17→20:02)
[2021-01-31] MEDS: QUEtiapine FUMARATE 12.5 MG HALF-TAB PO SCH (10:17)
[2021-01-31] MEDS: MONTELUKAST 10 MG TAB PO SCH (10:17)
[2021-01-31] MEDS: OMEPRAZOLE 20 MG CAP PO SCH (10:18)
[2021-01-31] MEDS: ENOXAPARIN 40MG/0.4ML SYRINGE (J1650 PER 10MG) SC SCH (10:18)
[2021-01-31] MEDS: LORazepam 0.5 MG TAB PO PRN (15:46)
[2021-01-31] MEDS: QUEtiapine FUMARATE 25 MG TAB PO SCH (20:02)
[2021-02-01 06:00] VITALS: BP 123/77
[2021-02-01 06:57] LABS: HEMATOCRIT 33.3 % (42.0-52.0); HEMOGLOBIN 11.5 g/dl (13.5-17.5); MEAN CORPUSCULAR HEMOGLOBIN 37.7 pg (27.0-33.0); MEAN CORPUSCULAR HGB CONC 34.5 g/dl (32.0-36.5); MEAN CORPUSCULAR VOLUME 109.2 fl (80.0-96.0); PLATELET COUNT, AUTOMATED 292 10^3/uL (150-450); RED BLOOD COUNT 3.05 10^6/uL (4.30-6.10); WHITE BLOOD COUNT 6.2 10^3/uL (4.0-10.0)
[2021-02-01 07:30] LABS: BLOOD UREA NITROGEN 8 MG/DL (7-18); CALCIUM LEVEL 8.6 MG/DL (8.8-10.2); CARBON DIOXIDE LEVEL 28 MEQ/L (21-32); CHLORIDE LEVEL 107 MEQ/L (98-107); CREATININE FOR GFR 0.84 MG/DL (0.70-1.30); GLOMERULAR FILTRATION RATE > 60.0 (>42); GLUCOSE, FASTING 90 MG/DL (70-100); POTASSIUM SERUM 3.8 MEQ/L (3.5-5.1); SODIUM LEVEL 140 MEQ/L (136-145)
[2021-02-01] MEDS: DOCUSATE SODIUM 100MG CAPSULE PO SCH ×2 (09:03→19:26)
[2021-02-01] MEDS: OMEPRAZOLE 20 MG CAP PO SCH (09:03)
[2021-02-01] MEDS: ROSUVASTATIN 10 MG TAB (CRESTOR) PO SCH (09:03)
[2021-02-01] MEDS: VITAMIN D 1,000 INTERNATIONAL UNITS TABLET PO SCH (09:03)
[2021-02-01] MEDS: MONTELUKAST 10 MG TAB PO SCH (09:03)
[2021-02-01] MEDS: QUEtiapine FUMARATE 12.5 MG HALF-TAB PO SCH (09:03)
[2021-02-01] MEDS: ENOXAPARIN 40MG/0.4ML SYRINGE (J1650 PER 10MG) SC SCH (09:04)
[2021-02-01] MEDS: OFLOXACIN 0.3 % (OCUFLOX) OPTH SOL 5ML OU SCH ×4 (09:04→19:37)
[2021-02-01 12:50] VITALS: BP 145/79
[2021-02-01] MEDS: ALBUTEROL SULFATE 2.5 MG/0.5 ML INH NEB SOLN NEB PRN ×2 (12:52→19:26)
[2021-02-01] MEDS: QUEtiapine FUMARATE 25 MG TAB PO SCH (19:27)
[2021-02-01] MEDS: LORazepam 0.5 MG TAB PO PRN (19:27)
[2021-02-02] MEDS: ALBUTEROL SULFATE 2.5 MG/0.5 ML INH NEB SOLN NEB PRN ×2 (05:30→10:04)
[2021-02-02 06:00] VITALS: BP 140/87
[2021-02-02] MEDS ORDERED: QUET25TA3 PO ×2 (07:16)
[2021-02-02] MEDS ORDERED: DOK1CAP7 PO (07:16)
--- NOTE | 2021-02-02 08:24 | MHCR ---
[facility] CONSULTATION DATE: 02/01/2021 REFERRING PHYSICIAN: ANAHI ALLAN MD Chart is reviewed. Patient is interviewed. CHIEF COMPLAINT: He says he feels okay. SUBJECTIVE: He is 80 years old. He is . He lives on his own, his daughter Susan apparently helps care for him. I have been asked to see him by the Hospitalist, to make an assessment regarding suicidality. The patient had come in, and just prior to coming in, had indicated wanted to shoot himself to , or to get outside, lay in a snow bank, until he dies from exposure. The bulk of the history is essentially obtained from the chart. The patient was admitted, and I understand there are plans to have him placed, per the Hospitalist. His daughter helps look after him, but per the chart, is not able to do so, including if there were aids or nursing assisting. The patient says he feels good, is not sure how long he has been here, he knows he is in the hospital, thought it was [facility], does not know the date, he knew the year, 2020, did not know the month, thought it may have been September, he thought it may be spring. He says he lives in a three bedroom house, says his neighbor visits, his daughter sees him almost daily. He denied that he was suicidal, says that has never been the case, vaguely acknowledged that he may have forgotten about his saying so. Does say that he has some difficulties with his memory, but does not think it is major. He does not think he needs assistance in terms of living or anymore than he currently gets, says his daughter helps with his cooking at times, is vague about the laundry. He also indicated that he was able to defend himself if the need arose, with his fists, or if anyone broke into the house, or the door here at the room. He says he has been sleeping okay, and that his appetite has been good. PAST PSYCHIATRIC HISTORY: I am unaware of any formally. He has been diagnosed with dementia, and is on quetiapine at 37.5 mg a day in divided doses. Per the initial evaluation on the chart, he apparently scored an 18 out of 30 on the mini-mental status exam. PAST MEDICAL HISTORY: GERD, asthma, small hiatal hernia. SOCIAL HISTORY: Lives on his own, he is , says he thinks he has about five children, he has a daughter in the area, who he says sees him regularly. MENTAL STATUS EXAM: He is sitting in the chair by the bedside. He is neat, he is cooperative. There is no agitation. No psychomotor retardation, answers questions logically, coherently, but at times makes statements which is not context of what is being discussed. No fluctuation of consciousness. Denies any suicidal thoughts or intents. No homicidal ideations or intents. He is alert. He is oriented to person, not to time nor place, he is reoriented to place, but not to time. He can spell the word house forwards but not backwards. Can do three digit forward span and backwards. Cannot recall any out of 3 objects after 5 minutes, and can recall only 1 of them with some prompting. Intellect is average. Judgment and insight are poor. ASSESSMENT: Neurocognitive disorder (dementia). This is most likely Alzheimer's type, moderate to severe. Has considerable cognitive deficits. He is not suicidal nor homicidal, and there is no evidence of any delirium at present. cognition interferes considerably, especially short-term memory. He has poor insight and judgment. RECOMMENDATIONS: Continue current care and plans. No evidence of active suicidal intent at present. His cognitive difficulties interfere with his functioning quite considerably. My assessment and recommendations are discussed with Dr. Allan. Thank you for the consult. If you have any questions, please call. The assessment took 30 minutes.
[2021-02-02] MEDS: QUEtiapine FUMARATE 12.5 MG HALF-TAB PO SCH (09:05)
[2021-02-02] MEDS: OMEPRAZOLE 20 MG CAP PO SCH (09:05)
[2021-02-02] MEDS: DOCUSATE SODIUM 100MG CAPSULE PO SCH (09:05)
[2021-02-02] MEDS: MONTELUKAST 10 MG TAB PO SCH (09:05)
[2021-02-02] MEDS: VITAMIN D 1,000 INTERNATIONAL UNITS TABLET PO SCH (09:06)
[2021-02-02] MEDS: ENOXAPARIN 40MG/0.4ML SYRINGE (J1650 PER 10MG) SC SCH (09:06)
[2021-02-02] MEDS: ROSUVASTATIN 10 MG TAB (CRESTOR) PO SCH (09:06)
[2021-02-02] MEDS: OFLOXACIN 0.3 % (OCUFLOX) OPTH SOL 5ML OU SCH (09:06)
[2021-02-02] MEDS ORDERED: LORazepam 2 MG TAB PO PRN (09:45)
[2021-02-02] MEDS ORDERED: LORazepam 1 MG TAB PO PRN (10:20)
--- NOTE | 2021-02-02 10:36 | DS.PDOC ---
Discharge Summary General Date of Admission Jan 16, 2021 at 16:43 Date of Discharge 02/02/2021 Discharge Summary PROCEDURES PERFORMED DURING STAY: [None]. ADMITTING DIAGNOSES / DISCHARGE DIAGNOSES: Dementia with intermittent behaviors s/p Suicidal ideation DLP Chronic Asthma GERD s/p Hypokalemia and Hyponatremia DVT prophylaxis COMPLICATIONS/CHIEF COMPLAINT: Confusion HISTORY OF PRESENT ILLNESS: Patient is a 80-year-old male who presented to [facility] because of worsening memory problems over the last 1-2 years. He was brought in by police after his son had called them. Patient had threatened to kill himself by shooting himself in the head or laying down in the snow [place] until he freezes. Patient does not recall seeing any such thing. Initially in the emergency room, patient was pleasant and reported that his daughter Susan (HCP) brings him food and cooks for him. Family had reported initially that they were unable to care for him and were seeking placement in an appropriate facility. Patient was admitted to the hospitalist service for further evaluation and treatment and likely placement. HOSPITAL COURSE: Dementia with intermittent behaviors - Patient has been cooperative and had times has been difficult - Requires reorienting - c/w Ativan PRN - c/w Seroquel s/p Suicidal ideation - s/p bedside sitter - Has been seen and evaluated by psychiatry DLP - c/w Rosuvastatin Chronic Asthma - No evidence of exacerbation - Continue with inhaled therapy as ordered GERD - c/w Omeprazole s/p Hypokalemia and Hyponatremia DVT prophylaxis - c/w Lovenox DISCHARGE MEDICATIONS: Please see below. ALLERGIES: Please see below. PHYSICAL EXAMINATION ON DISCHARGE: Vitals (See below) General: Lying in bed, appears comfortable, AAOx2 (person / place) HEENT: NC, AT CVS: +S1S2 Lungs: Fair air entry b/l, no appreciable wheezing, rhonchi or rales Abdomen: Soft, ND, NT Extremities: No evidence of edema, - Calf tenderness LABORATORY DATA: Please see below. ACTIVITY: [As tolerated]. DISCHARGE PLAN: Follow-up with primary care provider, and psychiatry within the next 7 days Remain compliant with treatment plan and medications Return to the ER if you experience any problems DISPOSITION: [facility] DISCHARGE CONDITION: [Stable]. TIME SPENT ON DISCHARGE: 35 minutes Vital Signs/I&Os Vital Signs Date Time Temp Pulse Resp B/P (MAP) Pulse Ox O2 Delivery O2 Flow Rate FiO2 02/02/21 06:00 97.2 78 18 140/87 (104) 98 Room Air I&O- Last 24 Hours up to 6 AM 02/02/21 05:59 Intake Total 2390 ml Output Total 0 ml Balance 2390 ml Discharge Medications Scheduled Cholecalciferol (Vitamin D3) (Vitamin D3) 1,000 Unit Tablet, 1,000 UNITS PO DAILY, (Reported) Docusate Sodium (Dok) 100 Mg Capsule, 100 MG PO BID Montelukast Sodium (Singulair) 10 Mg Tab, 10 MG PO DAILY, (Reported) Omeprazole (Omeprazole) 20 Mg Cap, 20 MG PO DAILY, (Reported) Quetiapine Fumarate (Quetiapine Fumarate) 25 Mg Tablet, 25 MG PO QHS Quetiapine Fumarate (Quetiapine Fumarate) 25 Mg Tablet, 12.5 MG PO QAM Rosuvastatin Calcium (Crestor) 40 Mg Tablet, 40 MG PO DAILY, (Reported) Scheduled PRN Albuterol Sulf (Albuterol Sulfate) 2.5 Mg/3 Ml Nebu, 2.5 MG INH QID PRN for SHORTNESS OF BREATH, (Reported) Albuterol Sulfate (Proair Hfa) 108 Mcg/Act Aer, 2 PUFF INH Q4H PRN for SHORTNESS OF BREATH, (Reported) Loratadine (Claritin) 10 Mg Tablet, 10 MG PO DAILY PRN for ALLERGIES, (Reported) Allergies Coded Allergies: aspirin (Verified Allergy, Severe, ANAPHYLAXIS, 09/08/20) ANAHI ALLAN MD Feb 02, 2021 10:35
== END 2021-02-02 12:36 | DRG 57 ==
LOC: M ED 11:30 → M ED INP 11:31 → OBSVTOIN 16:43 → ENRESERV 19:22 → M MSPAV 20:50
PROVIDERS: ADMIT Internal Medicine Nephrology; ATTEND Internal Medicine
DX: G30.9 Alzheimer's disease, unspecified (principal); E87.1 Hypo-osmolality and hyponatremia; R45.851 Suicidal ideations; E87.6 Hypokalemia; J45.909 Unspecified asthma, uncomplicated; F02.80 Dementia in other diseases classified elsewhere, unspecified severity, without behavioral disturbance, psychotic disturbance, mood disturbance, and anxiety; K21.9 Gastro-esophageal reflux disease without esophagitis; Z79.899 Other long term (current) drug therapy; Z88.6 Allergy status to analgesic agent; K44.9 Diaphragmatic hernia without obstruction or gangrene